=== PATIENT | female | born 1995 | race Caucasian/White ===

== ENCOUNTER 2016-05-21 01:19 | Emergency (ER) | payer BC ==
[2016-05-21 01:39] VITALS: O2SAT 98
--- NOTE | 2016-05-21 01:50 | ERPHSYRPT ---
- History of Present Illness Time Seen by Provider: 05/21/16 01:34 Source: patient Exam Limitations: no limitations Patient Subjective Stated Complaint: pt states she hadnt had a period for 6 months, states her period started on 05/14/16 and shes been passing clots and having pain and pressure in the pelvis. Triage Nursing Assessment: pt alert and oriented. answers questions approp. skin pale warm and dry. pt ambulatory with steady gait noted. respirations nonlabored with lungs cta. abd soft, bowel sounds present in all 4 quads. Physician History: PT STARTED WITH VAGINAL BLEEDING ON 05/14/16 WITH PELVIC PRESSURE/PAIN, LLQ ABDOMINAL PAIN AND HAS USED ABOUT 10 PADS EACH DAY SINCE. PT STATES PRIOR TO 05/14 SHE HAD NOT HAD A PERIOD FOR 6 MONTHS. PT DENIES FEVER, DIARRHEA, SHORTNESS OF AIR; ADMITS TO COUGH PRODUCTIVE OF CLEAR PHLEGM FOR THE PAST 3 DAYS, ANTERIOR CHEST PAIN ONLY WITH COUGH FOR THE PAST 2 DAYS AND VOMITING X2 YESTERDAY. PT STATES SHE HAS NEVER BEEN . PT ALSO C/O DYSURIA FOR THE PAST 11 DAYS. Allergies/Adverse Reactions: No Known Drug Allergies Allergy (Verified 05/03/15 17:32) Home Medications: Levothyroxine Sodium 100 Mcg [Synthroid 100 Mcg] 1 tab PO DAILY 04/18/15 [ History] Zolpidem Tartrate [Ambien] 10 mg PO HS PRN PRN 04/18/15 [History] Hx Tetanus, Diphtheria Vaccination/Date Given: Yes Hx Influenza Vaccination/Date Given: No Hx Pneumococcal Vaccination/Date Given: No - Review of Systems Constitutional: No Fever Respiratory: Cough, No Dyspnea Cardiac: Chest Pain Abdominal/Gastrointestinal: Abdominal Pain, Vomiting Genitourinary Symptoms: Dysuria, Vaginal Bleeding Musculoskeletal: No Back Pain Skin: No Rash Endocrine: No Excessive Sweating All Other Systems: Reviewed and Negative - Past Medical History Pertinent Past Medical History: Yes Neurological History: No Pertinent History ENT History: No Pertinent History Cardiac History: No Pertinent History Respiratory History: No Pertinent History Endocrine Medical History: Hypothyroidism Musculoskeletal History: No Pertinent History GI Medical History: No Pertinent History History: No Pertinent History Psycho-Social History: Other Other Medical History: sleep problems - Past Surgical History Past Surgical History: Yes Neuro Surgical History: No Pertinent History, Brain Shunt Cardiac: No Pertinent History Gastrointestinal: No Pertinent History Genitourinary: No Pertinent History Musculoskeletal: No Pertinent History Female Surgical History: No Pertinent History Other Surgical History: tonils - Social History Smoking Status: Current some day smoker How long have you smoked: 3 yrs Exposure to second hand smoke: Yes Drug Use: none Patient Lives Alone: No - Female History Hx Last Menstrual Period: current - Nursing Vital Signs Nursing Vital Signs: Initial Vital Signs Temperature 98.7 F Temperature Source Oral Pulse Rate 114 Respiratory Rate 18 Pain Intensity 8 - Physical Exam General Appearance: alert Eye Exam: PERRL/EOMI Ears, Nose, Throat Exam: TMs normal, pharynx normal, moist mucous membranes Neck Exam: normal inspection Respiratory Exam: lungs clear Cardiovascular Exam: normal heart sounds Gastrointestinal/Abdomen Exam: soft, normal bowel sounds, tenderness (MINIMAL LLQ ABDOMINAL TENDERNESS) Back Exam: normal range of motion Extremity Exam: normal inspection, No pedal edema Neurologic Exam: alert, cooperative Skin Exam: warm, dry SpO2 Interpretation: normal SpO2: 98 Oxygen Delivery: Room Air - Course Nursing assessment & vital signs reviewed: Yes Ordered Tests: Active Orders 24 hr Category Date Time Status AMYLASE Stat Lab 05/21/16 02:03 Completed CBC W DIFF Stat Lab 05/21/16 02:03 Completed CMP Stat Lab 05/21/16 02:03 Completed CULTURE,URINE Stat Lab 05/21/16 01:45 Received HCG QUALITATIVE,SERUM Stat Lab 05/21/16 02:03 Completed LIPASE Stat Lab 05/21/16 02:03 Completed UA W/ MICROSCOPIC Stat Lab 05/21/16 02:03 Completed Medication Summary Discontinued Medications Generic Name Dose Route Start Last Admin Trade Name Freq PRN Reason Stop Dose Admin Ceftriaxone Sodium 1,000 mg 05/21/16 02:23 05/21/16 02:29 Rocephin 1000 Mg Inj IM 05/21/16 02:24 1,000 mg STAT ONE Administration Ceftriaxone Sodium Confirm 05/21/16 02:26 Rocephin 1000 Mg Inj Administered 05/21/16 02:27 Dose 1,000 mg .ROUTE .STK-MED ONE Lidocaine HCl Confirm 05/21/16 02:26 Xylocaine 1% Hcl 20 Ml Mdv Administered 05/21/16 02:27 Dose 3 ml .ROUTE .STK-MED ONE Lab/Rad Data: Laboratory Result Diagrams 05/21/16 02:03 05/21/16 02:03 Laboratory Results 05/21/16 05/21/16 05/21/16 Range/Units 02:03 02:03 02:03 WBC 12.9 H (4.0-10.5) K/mm3 RBC 3.92 L (4.1-5.4) M/mm3 Hgb 10.6 L (12.0-16.0) gm/dl Hct 33.2 L (35-47) % MCV 84.7 (78-100) fl MCH 27.0 (26-32) pg MCHC 31.9 L (32-36) g/dl RDW 15.8 H (11.5-14.0) % Plt Count 407 (150-450) K/mm3 MPV 9.5 (6-9.5) fl Gran % 53.9 (36.0-66.0) % Lymphocytes % 36.9 (24.0-44.0) % Monocytes % 7.6 (0.0-12.0) % Eosinophils % 1.4 (0.00-5.0) % Basophils % 0.2 (0.0-0.4) % Basophils # 0.03 (0-0.4) Sodium 140 (136-145) mEq/L Potassium 3.6 (3.5-5.1) mEq/L Chloride 105 (98-107) mEq/L Carbon Dioxide 26.3 (21-32) mEq/L Anion Gap 12.3 (5-15) MEQ/L BUN 15 (9-20) mg/dL Creatinine 0.85 (0.55-1.30) mg/dl Estimated GFR > 60 ML/MIN Glucose 97 (70-110) MG/DL Calcium 8.7 (8.5-10.1) mg/dL Total Bilirubin 0.1 L (0.2-1.0) mg/dL AST 19 (15-37) U/L ALT 30 (12-78) U/L Alkaline Phosphatase 97 (46-116) U/L Serum Total Protein 7.3 (6.4-8.2) gm/dL Albumin 3.5 (3.4-5.0) g/dL Amylase 33 (25-115) U/L Lipase 136 (73-393) U/L Serum , Qual NEGATIVE (Negative) Ur Collection Type Urine Color (YELLOW) Urine Appearance (CLEAR) Urine pH (5-6) Ur Specific Larsen (1.005-1.025) Urine Protein (Negative) Urine Glucose (UA) (NEGATIVE) mg/dL Urine Ketones (NEGATIVE) Urine Nitrite (NEGATIVE) Urine Bilirubin (NEGATIVE) Urine Urobilinogen (0-1) mg/dL Urine WBC (Auto) (NEGATIVE) Urine RBC (Auto) (0-5) Phill/ul Urine Microscopic RBC (0-2) /HPF Urine Microscopic WBC (0-5) /HPF Ur Epithelial Cells (FEW) /HPF Urine Bacteria (NEGATIVE) /HPF Specimen Received 05/21/16 Range/Units 02:03 WBC (4.0-10.5) K/mm3 RBC (4.1-5.4) M/mm3 Hgb (12.0-16.0) gm/dl Hct (35-47) % MCV (78-100) fl MCH (26-32) pg MCHC (32-36) g/dl RDW (11.5-14.0) % Plt Count (150-450) K/mm3 MPV (6-9.5) fl Gran % (36.0-66.0) % Lymphocytes % (24.0-44.0) % Monocytes % (0.0-12.0) % Eosinophils % (0.00-5.0) % Basophils % (0.0-0.4) % Basophils # (0-0.4) Sodium (136-145) mEq/L Potassium (3.5-5.1) mEq/L Chloride (98-107) mEq/L Carbon Dioxide (21-32) mEq/L Anion Gap (5-15) MEQ/L BUN (9-20) mg/dL Creatinine (0.55-1.30) mg/dl Estimated GFR ML/MIN Glucose (70-110) MG/DL Calcium (8.5-10.1) mg/dL Total Bilirubin (0.2-1.0) mg/dL AST (15-37) U/L ALT (12-78) U/L Alkaline Phosphatase (46-116) U/L Serum Total Protein (6.4-8.2) gm/dL Albumin (3.4-5.0) g/dL Amylase (25-115) U/L Lipase (73-393) U/L Serum , Qual (Negative) Ur Collection Type CLEAN CATCH Urine Color RED (YELLOW) Urine Appearance CLOUDY (CLEAR) Urine pH 6.5 (5-6) Ur Specific Larsen 1.025 (1.005-1.025) Urine Protein 100 (Negative) Urine Glucose (UA) NEGATIVE (NEGATIVE) mg/dL Urine Ketones TRACE (NEGATIVE) Urine Nitrite NEGATIVE (NEGATIVE) Urine Bilirubin SMALL (NEGATIVE) Urine Urobilinogen 0.2 (0-1) mg/dL Urine WBC (Auto) NEGATIVE (NEGATIVE) Urine RBC (Auto) LARGE (0-5) Phill/ul Urine Microscopic RBC >100 (0-2) /HPF Urine Microscopic WBC 0-2 (0-5) /HPF Ur Epithelial Cells MODERATE (FEW) /HPF Urine Bacteria MODERATE (NEGATIVE) /HPF Specimen Received 05/21/16 0150 - Departure Time of Disposition: 02:52 Departure Disposition: Home Clinical Impression: UTI, MENOMETRORRHAGIA Condition: Fair Critical Care Time: No Instructions: Urinary Tract Infection (UTI), Dysmenorrhea Additional Instructions: FOLLOW UP WITH PRIVATE DOCTOR TOMORROW. Prescriptions: Smz/Tmp Ds Tablet [Bactrim Ds Tablet] 1 udtab PO BID #20 tablet
[2016-05-21 02:07] LABS: BASOPHIL % 0.2 % (0.0-0.4); Eosinophil % 1.4 % (0.00-5.0); Granulocytes % 53.9 % (36.0-66.0); Lymphocytes % 36.9 % (24.0-44.0); Mean Cell Volume 84.7 fl (78-100); Mean Platelet Volume 9.5 fl (6-9.5); Monocytes % 7.6 % (0.0-12.0); Platelet Count 407 K/mm3 (150-450); Red Blood Count 3.92 M/mm3 (4.1-5.4); Red Cell Distribution Width 15.8 % (11.5-14.0); White Blood Count 12.9 K/mm3 (4.0-10.5)
[2016-05-21 02:21] LABS: COMPLETE URINE MICROSCOPIC? YES; Collection Type CLEAN CATCH; Ph 6.5 (5-6)
[2016-05-21 02:22] LABS: Bacteria MODERATE /HPF (NEGATIVE); Epithelial Cells MODERATE /HPF (FEW); WBC 0-2 /HPF (0-5)
[2016-05-21] MEDS ORDERED: Rocephin 1000 MG INJ IM ONE (02:23)
[2016-05-21] MEDS ORDERED: Rocephin 1000 MG INJ ONE (02:26)
[2016-05-21] MEDS ORDERED: XYLOCAINE 1% HCL 20 ML MDV ONE (02:26)
[2016-05-21 02:30] LABS: ALBUMIN 3.5 g/dL (3.4-5.0); ALKALINE PHOSPHATASE 97 U/L (46-116); ANION GAP 12.3 MEQ/L (5-15); BILIRUBIN,TOTAL 0.1 mg/dL (0.2-1.0); BLOOD UREA NITROGEN 15 mg/dL (9-20); CHLORIDE 105 mEq/L (98-107); Carbon Dioxide 26.3 mEq/L (21-32); Glucose 97 MG/DL (70-110); LIPASE 136 U/L (73-393); Potassium 3.6 mEq/L (3.5-5.1); SGOT/AST 19 U/L (15-37); SGPT/ALT 30 U/L (12-78); SODIUM 140 mEq/L (136-145); Total Protein 7.3 gm/dL (6.4-8.2)
[2016-05-21] MEDS ORDERED: NORCO 5/325 MG PO ONE (02:53)
[2016-05-21] MEDS ORDERED: NORCO 5/325 MG ONE (03:09)
[2016-05-21 03:19] VITALS: BP 135/78; PULSE 108
== END 2016-05-21 03:20 | disposition home or self-care (01) ==
LOC: ED 01:19
DX: N39.0 Urinary tract infection, site not specified (principal); N92.1 Excessive and frequent menstruation with irregular cycle
CPT/HCPCS: 36415; 80053; 81000; 82150; 83690; 84703; 85025; 87086; 96372; 99283; 99284; J0696

== ENCOUNTER 2016-10-25 16:19 | Emergency (ER) | payer BC ==
[2016-10-25] MEDS ORDERED: TORAdol 30 mg Injection IV ONE (16:37)
[2016-10-25] MEDS ORDERED: Zofran 4 MG/2 ML VIAL IV ONE (16:37)
[2016-10-25 16:43] LABS: Collection Type VOID; Leukocyte Esterase 2+ (NEGATIVE)
[2016-10-25 16:44] LABS: ADD URINE CULTURE? YES (NO); Bilirubin NEGATIVE (NEGATIVE); Blood 250 Ery/ul (0-5); COMPLETE URINE MICROSCOPIC? YES; Glucose NEGATIVE (NEGATIVE)
[2016-10-25] MEDS ORDERED: Sodium Chloride 0.9% 1000 ML 1,000 ML IV SCH (16:45)
[2016-10-25] MEDS ORDERED: Zofran 4 MG/2 ML VIAL ONE (16:49)
[2016-10-25] MEDS ORDERED: Sodium Chloride 0.9% 1000 ML 1,000 ML ONE (16:49)
[2016-10-25] MEDS ORDERED: TORAdol 30 mg Injection ONE (16:49)
[2016-10-25 16:51] LABS: Bacteria MANY /HPF (NEGATIVE); Epithelial Cells MODERATE /HPF (FEW); WBC >100 /HPF (0-5)
[2016-10-25] MEDS ORDERED: ROCEPHIN 1 Gm-D5w 50 ml Bag** 1 G/50 ML IVPB IV ONE ×2 (16:55→17:00)
[2016-10-25 16:58] LABS: BASOPHIL % 0.2 % (0.0-0.4); Eosinophil % 1.8 % (0.00-5.0); Granulocytes % 65.4 % (36.0-66.0); Lymphocytes % 26.7 % (24.0-44.0); Mean Cell Volume 75.8 fl (78-100); Mean Platelet Volume 9.8 fl (6-9.5); Monocytes % 5.9 % (0.0-12.0); Platelet Count 404 K/mm3 (150-450); Red Blood Count 4.67 M/mm3 (4.1-5.4); Red Cell Distribution Width 19.4 % (11.5-14.0); White Blood Count 12.6 K/mm3 (4.0-10.5)
[2016-10-25 17:00] LABS: Mean Corpuscular Hemoglobin 23.7 pg (26-32)
--- NOTE | 2016-10-25 17:01 | ERPHSYRPT ---
- History of Present Illness Time Seen by Provider: 10/25/16 16:21 Historian: patient, family Exam Limitations: no limitations Patient Subjective Stated Complaint: pt states on 10/22/16 she began having dysuria. Pt now is c/o pain in her back and dysuria. Triage Nursing Assessment: pt pink, warm, dry. abdomen obese. denies any injury. bowel sounds present in all 4 quads. Physician History: patient with symptoms starting a few days ago and progressing in severity; some N without emesis; BMs ok; hx of recent frequent UTI; last one 6 weeks ago; denises - neg at docs a week ago; no fever; no travel; no exposures Timing/Duration: today (worse), yesterday (getting worse), day(s) (3 onset), gradual onset, worse Activities at Onset: none Quality: burning, cramping Abdominal Pain Onset Location: suprapubic (greatest), generalized abdomen Pain Radiation: no radiation Severity of Pain-Max: moderate Severity of Pain-Current: moderate Modifying Factors: Improves With: palpation, urinating Associated Symptoms: back, loss of appetite, nausea Previous symptoms: same symptoms as today (just not as bad) Allergies/Adverse Reactions: No Known Drug Allergies Allergy (Verified 10/25/16 16:32) Home Medications: Levothyroxine Sodium 100 Mcg [Synthroid 100 Mcg] 1 tab PO DAILY 04/18/15 [ History] Phentermine HCl [Adipex-P] 37.5 mg PO DAILY 10/25/16 [History] Hx Tetanus, Diphtheria Vaccination/Date Given: Yes (up to date) Hx Influenza Vaccination/Date Given: Yes Hx Pneumococcal Vaccination/Date Given: No Immunizations Up to Date: Yes - Review of Systems Constitutional: No Symptoms Eyes: No Symptoms Ears, Nose, & Throat: No Symptoms Respiratory: No Cough, No Dyspnea, No Wheezing Cardiac: No Chest Pain, No Palpitations, No Syncope Abdominal/Gastrointestinal: Abdominal Pain, Nausea, No Vomiting, No Diarrhea, No Constipation Genitourinary Symptoms: Dysuria, Frequency, Urgency, Flank Pain, No Hematuria, No Hesitancy, No Incontinence Musculoskeletal: No Symptoms Skin: No Symptoms Neurological: No Symptoms Psychological: No Symptoms Endocrine: No Symptoms Hematologic/Lymphatic: No Symptoms Immunological/Allergic: No Symptoms - Past Medical History Pertinent Past Medical History: Yes Neurological History: No Pertinent History ENT History: No Pertinent History Cardiac History: No Pertinent History Respiratory History: No Pertinent History Endocrine Medical History: Hypothyroidism Musculoskeletal History: No Pertinent History GI Medical History: No Pertinent History History: No Pertinent History Psycho-Social History: Other Other Medical History: sleep problems - Past Surgical History Past Surgical History: Yes Neuro Surgical History: No Pertinent History, Brain Shunt Cardiac: No Pertinent History Gastrointestinal: No Pertinent History Genitourinary: No Pertinent History Musculoskeletal: No Pertinent History Female Surgical History: No Pertinent History Other Surgical History: tonils - Social History Smoking Status: Current every day smoker How long have you smoked: 4 Exposure to second hand smoke: Yes Alcohol Use: Socially Drug Use: none Patient Lives Alone: No Significant Family History: no pertinent family hx - Female History Hx Last Menstrual Period: irregular 10/08-12/24 preg test neg a week ago Hx Now: No - Nursing Vital Signs Nursing Vital Signs: Initial Vital Signs Temperature 99.8 F 10/25/16 16:26 Pulse Rate 112 H 10/25/16 16:26 Respiratory Rate 18 10/25/16 16:26 Blood Pressure 141/65 10/25/16 16:26 O2 Sat by Pulse Oximetry 95 10/25/16 16:26 Pain Scale Pain Intensity 9 - Physical Exam General Appearance: moderate distress, alert, obese Eye Exam: PERRL/EOMI, eyes nml inspection, No photophobia Ears, Nose, Throat Exam: normal ENT inspection, TMs normal, pharynx normal, moist mucous membranes Neck Exam: normal inspection, non-tender, supple, full range of motion, No meningismus, No JVD Respiratory Exam: normal breath sounds, lungs clear, airway intact, No chest tenderness, No respiratory distress Cardiovascular Exam: regular rate/rhythm, normal heart sounds, normal peripheral pulses, tachycardia, capillary refill <2 sec, No murmur Gastrointestinal/Abdomen Exam: soft, normal bowel sounds, tenderness (Suprapubic > epig), No distention, No mass, No guarding, No pulsatile mass, No rebound, No organomegaly Pelvic Exam: deferred Rectal Exam: deferred Back Exam: normal inspection, normal range of motion, CVA tenderness (right only ), No vertebral tenderness, No rash Extremity Exam: normal inspection, normal range of motion, pedal edema (trace), No jaja's sign Neurologic Exam: alert, oriented x 3, cooperative, software support analyst II-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 nml as tested, normal mood/affect, nml cerebellar function, nml station & gait Skin Exam: normal color, warm, other (hairless), No rash Lymphatic Exam: No adenopathy SpO2 Interpretation: normal SpO2: 95 Oxygen Delivery: Room Air - Course Nursing assessment & vital signs reviewed: Yes Ordered Tests: Active Orders 24 hr Category Date Time Status IV Insertion STAT Care 10/25/16 16:37 Active Re-Check Vital Signs STAT Care 10/25/16 16:37 Active AMYLASE Stat Lab 10/25/16 16:55 Completed CBC W DIFF Stat Lab 10/25/16 16:55 Completed CMP Stat Lab 10/25/16 16:55 Completed CULTURE,URINE Stat Lab 10/25/16 16:30 Received HCG QUALITATIVE,SERUM Stat Lab 10/25/16 16:55 Completed LIPASE Stat Lab 10/25/16 16:55 Completed UA W/ MICROSCOPIC Stat Lab 10/25/16 16:30 Completed Medication Summary Generic Name Dose Route Start Last Admin Trade Name Freq PRN Reason Stop Dose Admin Sodium Chloride 1,000 mls @ 100 mls/hr 10/25/16 16:45 10/25/16 16:51 Sodium Chloride 0.9% 1000 Ml IV 11/24/16 16:44 100 mls/hr .Q10H PEPE Administration Discontinued Medications Generic Name Dose Route Start Last Admin Trade Name Freq PRN Reason Stop Dose Admin Ceftriaxone Sodium/Dextrose 1 g in 50 mls @ 100 mls/hr 10/25/16 16:55 17:01 Rocephin 1 Gm-D5w 50 Ml Bag IV 10/25/16 17:24 100 mls/hr STAT ONE Administration Ceftriaxone Sodium/Dextrose Confirm 10/25/16 17:00 Rocephin 1 Gm-D5w 50 Ml Bag Administered 10/25/16 17:01 Dose 1 g in 50 mls @ ud IV .STK-MED ONE Ketorolac Tromethamine 30 mg 10/25/16 16:37 10/25/16 16:51 Toradol 30 Mg Injection IV 10/25/16 16:38 30 mg STAT ONE Administration Ketorolac Tromethamine Confirm 10/25/16 16:49 Toradol 30 Mg Injection Administered 10/25/16 16:50 Dose 30 mg .ROUTE .STK-MED ONE Ondansetron HCl 4 mg 10/25/16 16:37 10/25/16 16:51 Zofran 4 Mg/2 Ml Vial IV 10/25/16 16:38 4 mg STAT ONE Administration Ondansetron HCl Confirm 10/25/16 16:49 Zofran 4 Mg/2 Ml Vial Administered 10/25/16 16:50 Dose 4 mg .ROUTE .STK-MED ONE Lab/Rad Data: Laboratory Result Diagrams 10/25/16 16:55 10/25/16 16:55 Laboratory Results 10/25/16 10/25/16 10/25/16 Range/Units 16:55 16:55 16:55 WBC 12.6 H (4.0-10.5) K/mm3 RBC 4.67 (4.1-5.4) M/mm3 Hgb 11.1 L (12.0-16.0) gm/dl Hct 35.4 (35-47) % MCV 75.8 L (78-100) fl MCH 23.7 L (26-32) pg MCHC 31.4 L (32-36) g/dl RDW 19.4 H (11.5-14.0) % Plt Count 404 (150-450) K/mm3 MPV 9.8 H (6-9.5) fl Gran % 65.4 (36.0-66.0) % Lymphocytes % 26.7 (24.0-44.0) % Monocytes % 5.9 (0.0-12.0) % Eosinophils % 1.8 (0.00-5.0) % Basophils % 0.2 (0.0-0.4) % Basophils # 0.02 (0-0.4) Sodium 141 (136-145) mEq/L Potassium 3.3 L (3.5-5.1) mEq/L Chloride 105 (98-107) mEq/L Carbon Dioxide 23.3 (21-32) mEq/L Anion Gap 15.5 H (5-15) MEQ/L BUN 11 (9-20) mg/dL Creatinine 1.02 (0.55-1.30) mg/dl Estimated GFR > 60 ML/MIN Glucose 139 H (70-110) MG/DL Calcium 9.0 (8.5-10.1) mg/dL Total Bilirubin 0.20 (0.2-1.0) mg/dL AST 22 (15-37) U/L ALT 38 (12-78) U/L Alkaline Phosphatase 108 (46-116) U/L Serum Total Protein 7.3 (6.4-8.2) gm/dL Albumin 3.5 (3.4-5.0) g/dL Amylase 24 L (25-115) U/L Lipase 90 (73-393) U/L Serum , Qual NEGATIVE (Negative) Ur Collection Type Urine Color (YELLOW) Urine Appearance (CLEAR) Urine pH (5-6) Ur Specific Browns (1.005-1.025) Urine Protein (Negative) Urine Ketones (NEGATIVE) Urine Blood (0-5) Phill/ul Urine Nitrite (NEGATIVE) Urine Bilirubin (NEGATIVE) Urine Urobilinogen (0-1) mg/dL Ur Leukocyte Esterase (NEGATIVE) Urine Microscopic RBC (0-2) /HPF Urine Microscopic WBC (0-5) /HPF Ur Epithelial Cells (FEW) /HPF Urine Bacteria (NEGATIVE) /HPF Urine Glucose (NEGATIVE) mg/dL Specimen Received 10/25/16 Range/Units 16:30 WBC (4.0-10.5) K/mm3 RBC (4.1-5.4) M/mm3 Hgb (12.0-16.0) gm/dl Hct (35-47) % MCV (78-100) fl MCH (26-32) pg MCHC (32-36) g/dl RDW (11.5-14.0) % Plt Count (150-450) K/mm3 MPV (6-9.5) fl Gran % (36.0-66.0) % Lymphocytes % (24.0-44.0) % Monocytes % (0.0-12.0) % Eosinophils % (0.00-5.0) % Basophils % (0.0-0.4) % Basophils # (0-0.4) Sodium (136-145) mEq/L Potassium (3.5-5.1) mEq/L Chloride (98-107) mEq/L Carbon Dioxide (21-32) mEq/L Anion Gap (5-15) MEQ/L BUN (9-20) mg/dL Creatinine (0.55-1.30) mg/dl Estimated GFR ML/MIN Glucose (70-110) MG/DL Calcium (8.5-10.1) mg/dL Total Bilirubin (0.2-1.0) mg/dL AST (15-37) U/L ALT (12-78) U/L Alkaline Phosphatase (46-116) U/L Serum Total Protein (6.4-8.2) gm/dL Albumin (3.4-5.0) g/dL Amylase (25-115) U/L Lipase (73-393) U/L Serum , Qual (Negative) Ur Collection Type VOID Urine Color YELLOW (YELLOW) Urine Appearance CLOUDY (CLEAR) Urine pH 5.0 (5-6) Ur Specific Browns 1.015 (1.005-1.025) Urine Protein 3+ (Negative) Urine Ketones NEGATIVE (NEGATIVE) Urine Blood 250 (0-5) Phill/ul Urine Nitrite NEGATIVE (NEGATIVE) Urine Bilirubin NEGATIVE (NEGATIVE) Urine Urobilinogen NORMAL (0-1) mg/dL Ur Leukocyte Esterase 2+ (NEGATIVE) Urine Microscopic RBC 0-2 (0-2) /HPF Urine Microscopic WBC >100 (0-5) /HPF Ur Epithelial Cells MODERATE (FEW) /HPF Urine Bacteria MANY (NEGATIVE) /HPF Urine Glucose NEGATIVE (NEGATIVE) mg/dL Specimen Received 10/25/16 1630 reviewed - Progress Progress: improved (after meds), re-examined (after meds and labs) Progress Note: 10/25/16 17:01 IV started; UA and lab collected; meds given; famil at bedside; UA shows infection; will start ATBs and recheck 10/25/16 17:31 reviewed findings and tests with patient and family; treatment plan and instructions given Counseled pt/family regarding: lab results, diagnosis, need for follow-up - Departure Time of Disposition: 17:32 Departure Disposition: Home Clinical Impression: UTI (urinary tract infection) Condition: Stable Critical Care Time: No Referrals: KYLIE VINSON [Primary Care Provider] - Instructions: Urinary Tract Infection (UTI) Additional Instructions: clear fluids; Follow-up with family doctor as directed. Call for appointment. Return if any problems. If you smoke please stop. Call or follow up with your family doctor for assistance if you need it to stop. Please wear your seatbelt when driving. Have a nice day. Thank you for allowing us to participate in your care today. :o) Dr William Sutherland Prescriptions: Phenazopyridine HCl 200 mg [Pyridium 200 mg] 200 mg PO Q12H PRN PRN #7 tablet PRN Reason: Pain Cephalexin Mh 500 mg [Keflex 500 mg] 500 mg PO QID #40 capsule
[2016-10-25 17:15] VITALS: BP 120/63; PULSE 90
[2016-10-25 17:27] LABS: ALBUMIN 3.5 g/dL (3.4-5.0); ALKALINE PHOSPHATASE 108 U/L (46-116); ANION GAP 15.5 MEQ/L (5-15); BLOOD UREA NITROGEN 11 mg/dL (9-20); CHLORIDE 105 mEq/L (98-107); Carbon Dioxide 23.3 mEq/L (21-32); Glucose 139 MG/DL (70-110); LIPASE 90 U/L (73-393); Potassium 3.3 mEq/L (3.5-5.1); SGOT/AST 22 U/L (15-37); SGPT/ALT 38 U/L (12-78); SODIUM 141 mEq/L (136-145); Total Protein 7.3 gm/dL (6.4-8.2)
[2016-10-25 17:35] VITALS: O2SAT 95
== END 2016-10-25 17:47 | disposition home or self-care (01) ==
LOC: ED 16:19
DX: N39.0 Urinary tract infection, site not specified (principal); R10.9 Unspecified abdominal pain; R11.0 Nausea; R30.0 Dysuria; R35.0 Frequency of micturition; R39.15 Urgency of urination
CPT/HCPCS: 36000; 36415; 80053; 81000; 82150; 83690; 84703; 85025; 87077; 87086; 87186; 96360; 96365; 96374; 96375; 99284; J0696; J1885; J2405

== ENCOUNTER 2016-10-28 22:40 | Emergency (ER) | payer BC ==
[2016-10-28] MEDS ORDERED: Phenergan 25 MG INJ IV ONE (22:59)
[2016-10-28] MEDS ORDERED: Sodium Chloride 0.9% 1000 ML 1,000 ML IV STA (22:59)
[2016-10-28] MEDS ORDERED: Hydromorphone 1 mg/ml Ampule IV ONE (22:59)
--- NOTE | 2016-10-28 23:06 | ERPHSYRPT ---
- History of Present Illness Time Seen by Provider: 10/28/16 22:50 Historian: patient Exam Limitations: no limitations Physician History: FOR THE PAST 7 DAYS PT HAS HAD LOW BACK PAIN; FOR THE PAST 2 DAYS INCREASED URINARY FREQUENCY, FEVER UP TO 100.1 DEGREES AND INTERMITTENT LOWER MID DULL ABDOMINAL PAIN LASTING UP TO 2 HOURS PER EPISODE; TODAY A FRONTAL HEADACHE, DIARRHEA X7 WITHOUT BLOOD AND A SUBJECTIVE FEELING OF SHAKINESS. PT HAS BEEN TAKING KEFLEX FOR THE PAST 3 DAYS FOR A UTI. Allergies/Adverse Reactions: No Known Drug Allergies Allergy (Verified 10/25/16 16:32) Home Medications: Levothyroxine Sodium 100 Mcg [Synthroid 100 Mcg] 1 tab PO DAILY 04/18/15 [ History] Phentermine HCl [Adipex-P] 37.5 mg PO DAILY 10/25/16 [History] Metformin HCl 500 mg [Glucophage 500 MG] 1 tab DAILY 10/28/16 [History] Phenazopyridine HCl [Azo Standard] 1 tab 10/28/16 [History] Hx Tetanus, Diphtheria Vaccination/Date Given: Yes (up to date) Hx Influenza Vaccination/Date Given: Yes Hx Pneumococcal Vaccination/Date Given: No - Review of Systems Constitutional: Fever Respiratory: No Dyspnea Cardiac: No Chest Pain Abdominal/Gastrointestinal: Abdominal Pain, Diarrhea Genitourinary Symptoms: Frequency Musculoskeletal: Back Pain (LOWER) Neurological: Headache, Other (SUBJECTIVE FEELING OF SHAKINESS) All Other Systems: Reviewed and Negative - Past Medical History Pertinent Past Medical History: Yes Neurological History: No Pertinent History ENT History: No Pertinent History Cardiac History: No Pertinent History Respiratory History: No Pertinent History Endocrine Medical History: Hypothyroidism Musculoskeletal History: No Pertinent History GI Medical History: No Pertinent History History: No Pertinent History Psycho-Social History: Other Other Medical History: sleep problems - Past Surgical History Past Surgical History: Yes Neuro Surgical History: No Pertinent History, Brain Shunt Cardiac: No Pertinent History Gastrointestinal: No Pertinent History Genitourinary: No Pertinent History Musculoskeletal: No Pertinent History Female Surgical History: No Pertinent History Other Surgical History: tonils - Social History Smoking Status: Current every day smoker How long have you smoked: 4 Exposure to second hand smoke: Yes Alcohol Use: Socially Drug Use: none Patient Lives Alone: No Significant Family History: no pertinent family hx - Female History Hx Now: No - Nursing Vital Signs Nursing Vital Signs: Initial Vital Signs Temperature 98.5 F 10/28/16 23:14 Pulse Rate 112 H 10/28/16 23:14 Respiratory Rate 16 10/28/16 23:14 Blood Pressure 148/84 10/28/16 23:14 O2 Sat by Pulse Oximetry 96 10/28/16 23:14 Pain Scale Pain Intensity 5 - Physical Exam General Appearance: alert Eye Exam: PERRL/EOMI Ears, Nose, Throat Exam: pharynx normal, moist mucous membranes Neck Exam: normal inspection Respiratory Exam: lungs clear Cardiovascular Exam: normal heart sounds Gastrointestinal/Abdomen Exam: soft, normal bowel sounds, tenderness (MILD DIFFUSE TENDERNESS WORSE OVER SUPRAPUBIC AREA.), No guarding Back Exam: normal range of motion Extremity Exam: normal inspection, No pedal edema Neurologic Exam: alert, cooperative Skin Exam: warm, dry - Course Nursing assessment & vital signs reviewed: Yes - CT Exams Abdomen/Pelvis CT Interpretation: Tele-radiologist Report (NO ACUTE INTRA-ABDOMINAL/ INTRAPELVIC PROCESS IDENTIFIED.) Ordered Tests: Active Orders 24 hr Category Date Time Status IV Insertion STAT Care 10/28/16 22:59 Active ABDOMEN AND PELVIS W/0 CONTRAS [CT] Stat Exams 10/28/16 23:59 Taken AMYLASE Stat Lab 10/28/16 23:15 Completed CBC W DIFF Stat Lab 10/28/16 23:15 Completed CMP Stat Lab 10/28/16 23:15 Completed CULTURE,URINE Stat Lab 10/28/16 23:00 Received HCG,QUALITATIVE URINE Stat Lab 10/28/16 23:00 Completed LIPASE Stat Lab 10/28/16 23:15 Completed UA W/ MICROSCOPIC Stat Lab 10/28/16 23:00 Completed Medication Summary Discontinued Medications Generic Name Dose Route Start Last Admin Trade Name Freq PRN Reason Stop Dose Admin Hydromorphone HCl 1 mg 10/28/16 22:59 10/28/16 23:19 Hydromorphone 1 Mg/Ml Ampule IV 10/28/16 23:00 1 mg STAT ONE Administration Hydromorphone HCl Confirm 10/28/16 23:18 Hydromorphone 1 Mg/Ml Ampule Administered 10/28/16 23:19 Dose 1 mg .ROUTE .STK-MED ONE Sodium Chloride 1,000 mls @ 999 mls/hr 10/28/16 22:59 10/28/16 23:19 Sodium Chloride 0.9% 1000 Ml IV 10/28/16 23:59 999 mls/hr .Q1H1M STA Administration Sodium Chloride Confirm 10/28/16 23:18 Sodium Chloride 0.9% 1000 Ml Administered 10/28/16 23:19 Dose 1,000 mls @ ud .ROUTE .STK-MED ONE Promethazine HCl 12.5 mg 10/28/16 22:59 10/28/16 23:19 Phenergan 25 Mg Inj IV 10/28/16 23:00 12.5 mg STAT ONE Administration Promethazine HCl Confirm 10/28/16 23:17 Phenergan 25 Mg Inj Administered 10/28/16 23:18 Dose 25 mg .ROUTE .STK-MED ONE Lab/Rad Data: Laboratory Result Diagrams 10/28/16 23:15 10/28/16 23:15 Laboratory Results 10/28/16 10/28/16 10/28/16 Range/Units 23:15 23:15 23:00 WBC 15.6 H (4.0-10.5) K/mm3 RBC 4.69 (4.1-5.4) M/mm3 Hgb 11.0 L (12.0-16.0) gm/dl Hct 35.5 (35-47) % MCV 75.7 L (78-100) fl MCH 23.4 L (26-32) pg MCHC 31.0 L (32-36) g/dl RDW 19.6 H (11.5-14.0) % Plt Count 411 (150-450) K/mm3 MPV 9.8 H (6-9.5) fl Gran % 66.5 H (36.0-66.0) % Lymphocytes % 26.6 (24.0-44.0) % Monocytes % 5.2 (0.0-12.0) % Eosinophils % 1.5 (0.00-5.0) % Basophils % 0.2 (0.0-0.4) % Basophils # 0.03 (0-0.4) Sodium 140 (136-145) mEq/L Potassium 3.4 L (3.5-5.1) mEq/L Chloride 104 (98-107) mEq/L Carbon Dioxide 23.9 (21-32) mEq/L Anion Gap 15.3 H (5-15) MEQ/L BUN 9 (9-20) mg/dL Creatinine 0.95 (0.55-1.30) mg/dl Estimated GFR > 60 ML/MIN Glucose 101 (70-110) MG/DL Calcium 9.2 (8.5-10.1) mg/dL Total Bilirubin 0.20 (0.2-1.0) mg/dL AST 23 (15-37) U/L ALT 36 (12-78) U/L Alkaline Phosphatase 106 (46-116) U/L Serum Total Protein 7.6 (6.4-8.2) gm/dL Albumin 3.8 (3.4-5.0) g/dL Amylase 24 L (25-115) U/L Lipase 77 (73-393) U/L Ur Collection Type Urine Color (YELLOW) Urine Appearance (CLEAR) Urine pH (5-6) Ur Specific [place] (1.005-1.025) Urine Protein (Negative) Urine Ketones (NEGATIVE) Urine Blood (0-5) Phill/ul Urine Nitrite (NEGATIVE) Urine Bilirubin (NEGATIVE) Urine Urobilinogen (0-1) mg/dL Ur Leukocyte Esterase (NEGATIVE) Urine Microscopic RBC (0-2) /HPF Urine Microscopic WBC (0-5) /HPF Ur Epithelial Cells (FEW) /HPF Urine Bacteria (NEGATIVE) /HPF Urine Mucus (NEGATIVE) /HPF Urine Glucose (NEGATIVE) mg/dL Urine HCG, Qual NEGATIVE (Negative) Specimen Received 10/28/16 Range/Units 23:00 WBC (4.0-10.5) K/mm3 RBC (4.1-5.4) M/mm3 Hgb (12.0-16.0) gm/dl Hct (35-47) % MCV (78-100) fl MCH (26-32) pg MCHC (32-36) g/dl RDW (11.5-14.0) % Plt Count (150-450) K/mm3 MPV (6-9.5) fl Gran % (36.0-66.0) % Lymphocytes % (24.0-44.0) % Monocytes % (0.0-12.0) % Eosinophils % (0.00-5.0) % Basophils % (0.0-0.4) % Basophils # (0-0.4) Sodium (136-145) mEq/L Potassium (3.5-5.1) mEq/L Chloride (98-107) mEq/L Carbon Dioxide (21-32) mEq/L Anion Gap (5-15) MEQ/L BUN (9-20) mg/dL Creatinine (0.55-1.30) mg/dl Estimated GFR ML/MIN Glucose (70-110) MG/DL Calcium (8.5-10.1) mg/dL Total Bilirubin (0.2-1.0) mg/dL AST (15-37) U/L ALT (12-78) U/L Alkaline Phosphatase (46-116) U/L Serum Total Protein (6.4-8.2) gm/dL Albumin (3.4-5.0) g/dL Amylase (25-115) U/L Lipase (73-393) U/L Ur Collection Type VOID Urine Color ORANGE (YELLOW) Urine Appearance SLIGHTLY CLOUDY (CLEAR) Urine pH 6.0 (5-6) Ur Specific [place] 1.020 (1.005-1.025) Urine Protein NEGATIVE (Negative) Urine Ketones NEGATIVE (NEGATIVE) Urine Blood TRACE NON-HEM (0-5) Phill/ul Urine Nitrite NEGATIVE (NEGATIVE) Urine Bilirubin NEGATIVE (NEGATIVE) Urine Urobilinogen NORMAL (0-1) mg/dL Ur Leukocyte Esterase TRACE (NEGATIVE) Urine Microscopic RBC 2-5 (0-2) /HPF Urine Microscopic WBC 2-5 (0-5) /HPF Ur Epithelial Cells MODERATE (FEW) /HPF Urine Bacteria RARE (NEGATIVE) /HPF Urine Mucus MODERATE (NEGATIVE) /HPF Urine Glucose NEGATIVE (NEGATIVE) mg/dL Urine HCG, Qual (Negative) Specimen Received 10/28/162319 - Departure Time of Disposition: 00:50 Departure Disposition: Home Clinical Impression: UTI, ABDOMINAL PAIN Condition: Stable Critical Care Time: No Instructions: Urinary Tract Infection (UTI), Abdominal Pain-Adult Additional Instructions: FOLLOW UP WITH PRIVATE DOCTOR TOMORROW. STOP KEFLEX. Prescriptions: Smz/Tmp Ds Tablet [Bactrim Ds Tablet] 1 udtab PO BID #20 tablet
[2016-10-28] MEDS ORDERED: Phenergan 25 MG INJ ONE (23:17)
[2016-10-28] MEDS ORDERED: Sodium Chloride 0.9% 1000 ML 1,000 ML ONE (23:18)
[2016-10-28] MEDS ORDERED: Hydromorphone 1 mg/ml Ampule ONE (23:18)
[2016-10-28 23:19] LABS: BASOPHIL % 0.2 % (0.0-0.4); Eosinophil % 1.5 % (0.00-5.0); Granulocytes % 66.5 % (36.0-66.0); Lymphocytes % 26.6 % (24.0-44.0); Mean Cell Volume 75.7 fl (78-100); Mean Platelet Volume 9.8 fl (6-9.5); Monocytes % 5.2 % (0.0-12.0); Platelet Count 411 K/mm3 (150-450); Red Blood Count 4.69 M/mm3 (4.1-5.4); Red Cell Distribution Width 19.6 % (11.5-14.0); White Blood Count 15.6 K/mm3 (4.0-10.5)
[2016-10-28 23:48] LABS: ALBUMIN 3.8 g/dL (3.4-5.0); ALKALINE PHOSPHATASE 106 U/L (46-116); ANION GAP 15.3 MEQ/L (5-15); BLOOD UREA NITROGEN 9 mg/dL (9-20); CHLORIDE 104 mEq/L (98-107); Carbon Dioxide 23.9 mEq/L (21-32); Glucose 101 MG/DL (70-110); LIPASE 77 U/L (73-393); Potassium 3.4 mEq/L (3.5-5.1); SGOT/AST 23 U/L (15-37); SGPT/ALT 36 U/L (12-78); SODIUM 140 mEq/L (136-145); Total Protein 7.6 gm/dL (6.4-8.2)
[2016-10-28 23:49] LABS: Mean Corpuscular Hemoglobin 23.4 pg (26-32)
[2016-10-28 23:54] LABS: Collection Type VOID
[2016-10-28 23:55] LABS: Bacteria RARE /HPF (NEGATIVE); Bilirubin NEGATIVE (NEGATIVE); Blood TRACE NON-HEM Ery/ul (0-5); COMPLETE URINE MICROSCOPIC? YES; Epithelial Cells MODERATE /HPF (FEW); Glucose NEGATIVE (NEGATIVE); Leukocyte Esterase TRACE (NEGATIVE); Mucus MODERATE /HPF (NEGATIVE)
[2016-10-28 23:56] LABS: ADD URINE CULTURE? YES (NO)
[2016-10-29] MEDS ORDERED: ROCEPHIN 1 Gm-D5w 50 ml Bag** 1 G/50 ML IVPB IV STA (00:46)
[2016-10-29] MEDS ORDERED: Klor Con 10 MEQ PO ONE ×2 (00:46→00:50)
[2016-10-29] MEDS ORDERED: ROCEPHIN 1 Gm-D5w 50 ml Bag** 1 G/50 ML IVPB IV ONE (00:50)
[2016-10-29] MEDS ORDERED: Hydromorphone 1 mg/ml Ampule IV ONE (00:53)
[2016-10-29] MEDS ORDERED: Zofran 4 MG/2 ML VIAL IV ONE (00:53)
[2016-10-29] MEDS ORDERED: Zofran 4 MG/2 ML VIAL ONE (00:56)
[2016-10-29] MEDS ORDERED: Hydromorphone 1 mg/ml Ampule ONE (00:56)
[2016-10-29] MEDS ORDERED: NORCO 5/325 MG PO ONE (00:58)
[2016-10-29] MEDS ORDERED: NORCO 5/325 MG ONE (01:04)
[2016-10-29 01:55] VITALS: BP 126/78; PULSE 88; O2SAT 99
--- NOTE | 2016-10-29 07:48 | XRAY ---
Indication: Bilateral flank pain, low back pain, diarrhea, fever, and urinary frequency. Multiple contiguous axial images obtained through the abdomen and pelvis without contrast as ordered. Comparison: None Lung bases are clear. Heart is not enlarged. Stomach is distended with food. Noncontrasted stomach and bowel loops appear nonobstructed. Normal appendix. No free fluid/air. Remaining liver, gallbladder, pancreas, spleen, adrenal glands, kidneys, ureters, bladder, uterus, and aorta appear unremarkable for noncontrast exam. Osseous structures intact. Impression: No acute intra-abdominal/pelvic abnormalities on this noncontrast exam. Comment: Preliminary interpretation was made by [facility]. No discrepancy. CTDI 23.68
== END 2016-10-29 01:30 | disposition home or self-care (01) ==
LOC: ED 22:40
DX: N39.0 Urinary tract infection, site not specified (principal); R10.9 Unspecified abdominal pain; R35.0 Frequency of micturition; R51 Headache; R19.7 Diarrhea, unspecified; Z79.899 Other long term (current) drug therapy; Z79.84 Long term (current) use of oral hypoglycemic drugs
CPT/HCPCS: 36000; 36415; 74176; 80053; 81000; 82150; 83690; 84703; 85025; 87077; 87086; 87186; 96360; 96365; 96367; 96374; 96375; 99285; J0696; J1170; J2405; J2550; A9270-GY

== ENCOUNTER 2016-11-27 14:12 | Emergency (ER) | payer BC ==
[2016-11-27 14:22] VITALS: O2SAT 98
[2016-11-27] MEDS ORDERED: PROVENTIL 2.5 MG/3 ML NEB IH ONE ×2 (14:27→14:55)
--- NOTE | 2016-11-27 14:36 | ERPHSYRPT ---
- History of Present Illness Time Seen by Provider: 11/27/16 14:20 Source: patient Patient Subjective Stated Complaint: "I thought I had a cold, I have been having chest pain and a cough since sunday and now my chest really hurts when I cough and breath". Dr. Corea Triage Nursing Assessment: Pt alert and oriented X 3, skin pwd pt ambulates without difficulty, able to speak in full sentences. coughing. Physician History: CC: chest cold Hx: 21 y/o patient of Dr Spring with cough, congestion, aching since Sunday (3 days). No fever. Remote hx of asthma. No V/D. Not particularly short of breath. She is a smoker. On provera in attempt to get . Allergies/Adverse Reactions: No Known Drug Allergies Allergy (Verified 11/27/16 14:21) Home Medications: Levothyroxine Sodium 100 Mcg [Synthroid 100 Mcg] 1 tab PO DAILY 04/18/15 [ History] Phentermine HCl [Adipex-P] 37.5 mg PO DAILY 10/25/16 [History] Metformin HCl 500 mg [Glucophage 500 MG] 1 tab DAILY 10/28/16 [History] Hx Tetanus, Diphtheria Vaccination/Date Given: No Hx Influenza Vaccination/Date Given: Yes Hx Pneumococcal Vaccination/Date Given: No Immunizations Up to Date: Yes - Review of Systems Constitutional: Fatigue, Malaise, Weakness, No Fever, No Chills Ears, Nose, & Throat: Nose Congestion Respiratory: Cough Cardiac: Chest Pain (aching with coughing) Abdominal/Gastrointestinal: No Nausea, No Vomiting, No Diarrhea Skin: No Rash Neurological: No Headache All Other Systems: Reviewed and Negative - Past Medical History Pertinent Past Medical History: Yes Neurological History: No Pertinent History ENT History: No Pertinent History Cardiac History: No Pertinent History Respiratory History: No Pertinent History Endocrine Medical History: Hypothyroidism Musculoskeletal History: No Pertinent History GI Medical History: No Pertinent History History: No Pertinent History Psycho-Social History: Other Female Reproductive Disorders: Menstrual Problems, Other Other Medical History: sleep problems - Past Surgical History Past Surgical History: Yes Neuro Surgical History: No Pertinent History, Brain Shunt Cardiac: No Pertinent History Gastrointestinal: No Pertinent History Genitourinary: No Pertinent History Musculoskeletal: No Pertinent History Female Surgical History: No Pertinent History Other Surgical History: tonils - Social History Smoking Status: Current every day smoker How long have you smoked: 4 year Exposure to second hand smoke: Yes Alcohol Use: Socially Drug Use: none Patient Lives Alone: No Significant Family History: no pertinent family hx - Female History Hx Last Menstrual Period: 11/16/2016 Hx Now: No - Nursing Vital Signs Nursing Vital Signs: Initial Vital Signs Temperature 98.3 F 11/27/16 14:13 Pulse Rate 78 11/27/16 14:13 Respiratory Rate 18 11/27/16 14:13 Blood Pressure 126/66 11/27/16 14:13 O2 Sat by Pulse Oximetry 98 11/27/16 14:13 Pain Scale Pain Intensity 7 - Physical Exam General Appearance: alert Eye Exam: PERRL/EOMI Ears, Nose, Throat Exam: moist mucous membranes Neck Exam: normal inspection, non-tender, supple Respiratory Exam: normal breath sounds, lungs clear Cardiovascular Exam: regular rate/rhythm Gastrointestinal/Abdomen Exam: soft, No tenderness, No distention Extremity Exam: normal inspection, normal range of motion, No calf tenderness, No pedal edema Neurologic Exam: alert, oriented x 3, cooperative Skin Exam: warm, dry, No rash SpO2 Interpretation: normal SpO2: 98 Oxygen Delivery: Room Air - Course Nursing assessment & vital signs reviewed: Yes EKG Interpreted by Me: RATE (83), Sinus Rhythm, NORMAL AXIS, NORMAL INTERVALS ( QTc 442), NORMAL QRS, NORMAL ST-T - Radiology Exams cxr X-ray Interpretation: Teleradiologist Report, Negative Ordered Tests: Active Orders 24 hr Category Date Time Status Clean Catch Urine Specimen STAT Care 11/27/16 14:26 Active EKG-ER Only STAT Care 11/27/16 14:27 Active CHEST 2 VIEWS (PA AND LAT) Stat Exams 11/27/16 14:28 Completed CULTURE,URINE Stat Lab 11/27/16 14:35 Received HCG,QUALITATIVE URINE Stat Lab 11/27/16 14:35 Completed UA W/ MICROSCOPIC Stat Lab 11/27/16 14:35 Completed Respiratory Nebulizer STAT RT 11/27/16 14:28 Completed Medication Summary Discontinued Medications Generic Name Dose Route Start Last Admin Trade Name Freq PRN Reason Stop Dose Admin Albuterol Sulfate 2.5 mg 11/27/16 14:27 11/27/16 14:57 Proventil 2.5 Mg/3 Ml Neb IH 11/27/16 14:28 2.5 mg STAT ONE Administration Albuterol Sulfate Confirm 11/27/16 14:55 Proventil 2.5 Mg/3 Ml Neb Administered 11/27/16 14:56 Dose 2.5 mg IH .STK-MED ONE Lab/Rad Data: Laboratory Results 11/27/16 11/27/16 Range/Units 14:35 14:35 Ur Collection Type CCMS Urine Color YELLOW (YELLOW) Urine Appearance CLEAR (CLEAR) Urine pH 5.0 (5-6) Ur Specific [place] 1.025 (1.005-1.025) Urine Protein NEGATIVE (Negative) Urine Ketones NEGATIVE (NEGATIVE) Urine Blood 250 (0-5) Phill/ul Urine Nitrite NEGATIVE (NEGATIVE) Urine Bilirubin NEGATIVE (NEGATIVE) Urine Urobilinogen NORMAL (0-1) mg/dL Ur Leukocyte Esterase TRACE (NEGATIVE) Urine Microscopic RBC 2-5 (0-2) /HPF Urine Microscopic WBC 0-2 (0-5) /HPF Ur Epithelial Cells MANY (FEW) /HPF Urine Bacteria FEW (NEGATIVE) /HPF Urine Glucose NEGATIVE (NEGATIVE) mg/dL Urine HCG, Qual NEGATIVE (Negative) Specimen Received 11-27-16 1450 - Progress Progress Note: 11/27/16 15:05 Instr given for acute bronchitis. Counseled pt/family regarding: lab results, diagnosis, need for follow-up, rad results, smoking cessation - Departure Time of Disposition: 15:05 Departure Disposition: Home Clinical Impression: Acute bronchitis Qualifiers: Bronchitis organism: unspecified organism Qualified Code(s): J20.9 - Acute bronchitis, unspecified Condition: Stable Critical Care Time: No Referrals: KYLIE VINSON [Primary Care Provider] - Instructions: Bronchitis, Quit Smoking, Use a Metered-Dose Inhaler Additional Instructions: UPPER RESPIRATORY INFECTIONS 1. The signs and symptoms of a cold may last up to 10 days. These illnesses are due to viruses which are not treatable with antibiotics. 2. The following suggestions can aid in recovery and to minimize symptoms: A. Increase fluid intake. B. Acetaminophen or Ibuprofen as directed. C. Avoid smoking environments as this will increase the risk of developing pneumonia. D. For children, may use a cool mist vaporizer in the child's room. 3. Contact your Family Physician if you note: A. Persisten fever >103 for more than 3 days B. Breathing difficulty C. Productive cough of yellow/green sputum D. Illness greater than 7 days E. Persistent vomiting F. Stiff neck Rx albuterol MDI. Ibuprofen as directed for discomfort. Follow up with Dr Spring Prescriptions: Albuterol Sulfate [Albuterol Sulfate Hfa] 2 puff IH Q4-6HPRN PRN #1 [email or web address] PRN Reason: cough or wheeze
[2016-11-27 14:54] LABS: Bacteria FEW /HPF (NEGATIVE); Bilirubin NEGATIVE (NEGATIVE); Blood 250 Ery/ul (0-5); COMPLETE URINE MICROSCOPIC? YES; Collection Type CCMS; Epithelial Cells MANY /HPF (FEW); Glucose NEGATIVE (NEGATIVE); Leukocyte Esterase TRACE (NEGATIVE); WBC 0-2 /HPF (0-5)
[2016-11-27 14:55] LABS: ADD URINE CULTURE? YES (NO)
--- NOTE | 2016-11-27 15:01 | XRAY ---
Indication: Cough, congestion, and chest pain. Comparison: None PA/lateral chest demonstrates normal heart, lungs, and bony thorax.
[2016-11-27 15:07] VITALS: BP 124/71; PULSE 86
== END 2016-11-27 15:15 | disposition home or self-care (01) ==
LOC: ED 14:12
DX: J20.9 Acute bronchitis, unspecified (principal)
CPT/HCPCS: 71020; 81000; 84703; 87086; 93005; 94640; 99282; 99285; A9270-GY

== ENCOUNTER 2018-12-01 01:21 | Emergency (ER) | payer MEDICAID, BC | END 2018-12-01 12:36 | disposition home or self-care (01) | LOC: ED 01:21 ==

== ENCOUNTER 2019-11-18 03:32 | Emergency (ER) | payer MEDICAID, OTHER ==
--- NOTE | 2019-11-18 04:12 | ERPHSYRPT ---
- History of Present Illness Source: patient Patient Subjective Stated Complaint: "I had a kidney infection two weeks ago. It started getting better and then four days ago the pain got worse." Triage Nursing Assessment: Pt presetned alert et oriented x3 answering questions appropriately. Pt ambulated to room without assistance or complications. Pt reported left sided flank pain onset two weeks ago of which she was treated for a kidney infection. pt reported worsening pain over the past four weeks that progressed to constant bilateral flank pain that radiates to her abdomen. Pt reported slight vomiting and nausea. pt denied constipation or diarrhea. Pupils 3mm brisk reaction. Oral mucosa pink/moist. Symmetrical chest expansion. radial pulses equal bilateral. Abdomen obese non-distended with diffuse tenderness noted. No noted dependent edema. Physician History: 24 yo wf w B flank pain x 4days/dysuria/frequency/N wo V/D/fever. Timing/Duration: other (4 days) Activites at Onset: none Quality: aching Onset Location: generalized flank Pain Radiation: none Severity of Pain-Max: moderate Severity of Pain-Current: moderate Prior abdominal problems: UTI Modifying Factors: Improves With: urinating Associated Symptoms: dysuria, polyuria, urinary frequency Allergies/Adverse Reactions: No Known Drug Allergies Allergy (Verified 11/18/19 03:38) Hx Tetanus, Diphtheria Vaccination/Date Given: No (unsure) Hx Influenza Vaccination/Date Given: Yes Hx Pneumococcal Vaccination/Date Given: No Travel Risk - International Travel Have you traveled outside of the country in past 3 weeks: No - Coronavirus Screening Are you exhibiting any of the following symptoms?: No Close contact with a COVID-19 positive Pt in past 14-21 Days: No - Review of Systems Constitutional: Chills Eyes: No Symptoms Ears, Nose, & Throat: No Symptoms Respiratory: No Symptoms Cardiac: No Symptoms Abdominal/Gastrointestinal: Nausea, No Vomiting, No Diarrhea, No Hematemesis, No Hematochezia, No Melena, No Dysphagia Genitourinary Symptoms: Dysuria, Frequency, Urgency, Flank Pain, No Hematuria, No Incontinence Musculoskeletal: No Symptoms Skin: No Symptoms Neurological: No Symptoms Psychological: No Symptoms Endocrine: No Symptoms Hematologic/Lymphatic: No Symptoms Immunological/Allergic: No Symptoms - Past Medical History Pertinent Past Medical History: Yes Neurological History: No Pertinent History ENT History: No Pertinent History Cardiac History: No Pertinent History Respiratory History: No Pertinent History Endocrine Medical History: Hypothyroidism Musculoskeletal History: No Pertinent History GI Medical History: No Pertinent History History: No Pertinent History Psycho-Social History: Other Female Reproductive Disorders: Menstrual Problems, Other Other Medical History: sleep problems, alopecia totalis - Past Surgical History Past Surgical History: Yes Neuro Surgical History: No Pertinent History, Brain Shunt Cardiac: No Pertinent History Gastrointestinal: No Pertinent History Genitourinary: No Pertinent History Musculoskeletal: No Pertinent History Female Surgical History: No Pertinent History Other Surgical History: tonils - Social History Smoking Status: Current every day smoker How long have you smoked: 6 year Exposure to second hand smoke: Yes Alcohol Use: Socially Drug Use: none Patient Lives Alone: No Significant Family History: no pertinent family hx - Female History Hx Last Menstrual Period: 10/30/19 Hx Now: No - Nursing Vital Signs Nursing Vital Signs: Initial Vital Signs Temperature 98.9 F 11/18/19 03:33 Pulse Rate 100 H 11/18/19 03:33 Respiratory Rate 18 11/18/19 03:33 Blood Pressure 160/89 11/18/19 03:33 O2 Sat by Pulse Oximetry 97 11/18/19 03:33 Pain Scale Pain Intensity 6 - Physical Exam General Appearance: no apparent distress Eye Exam: PERRL/EOMI, eyes nml inspection Ears, Nose, Throat Exam: normal ENT inspection, TMs normal, pharynx normal, moist mucous membranes Neck Exam: normal inspection, non-tender, supple, No meningismus, No Brudzinski, No Kernig's Respiratory Exam: normal breath sounds, lungs clear, airway intact, No respiratory distress Cardiovascular Exam: tachycardia (Mildly) Gastrointestinal/Abdomen Exam: soft, normal bowel sounds, tenderness (Mild diffuse) Pelvic Exam: not done Back Exam: CVA tenderness Extremity Exam: normal inspection Neurologic Exam: alert, oriented x 3, cooperative, industrial organizational psychologist II-XII nml as tested, normal mood/affect, sensation nml, No motor deficits, No sensory deficit Skin Exam: normal color, warm, dry Lymphatic Exam: No adenopathy SpO2 Interpretation: normal SpO2: 97 - Course Nursing assessment & vital signs reviewed: Yes Ordered Tests: Active Orders 24 hr Category Date Time Status CULTURE,URINE Stat Lab 11/18/19 04:00 Received HCG,QUALITATIVE URINE Stat Lab 11/18/19 04:00 Completed UA W/RFX UR CULTURE Stat Lab 11/18/19 04:00 Completed Medication Summary Generic Name Dose Route Start Last Admin Trade Name Anabell PRN Reason Stop Dose Admin Ceftriaxone Sodium/Dextrose 1 g in 50 mls @ 100 mls/hr 11/18/19 04:21 11/18/19 04:22 Rocephin 1 Gm-D5w 50 Ml Bag IV 11/18/19 04:50 100 mls/hr STAT STA 100 mls/hr Administration Discontinued Medications Generic Name Dose Route Start Last Admin Trade Name Anabell PRN Reason Stop Dose Admin Ceftriaxone Sodium/Dextrose Confirm 11/18/19 04:21 Rocephin 1 Gm-D5w 50 Ml Bag Administered 11/18/19 04:22 Dose 1 g in 50 mls @ ud IV .STK-MED ONE Ketorolac Tromethamine 30 mg 11/18/19 04:21 11/18/19 04:23 Toradol 30 Mg Injection IV 11/18/19 04:22 30 mg STAT ONE Administration Ketorolac Tromethamine Confirm 11/18/19 04:21 Toradol 30 Mg Injection Administered 11/18/19 04:22 Dose 30 mg .ROUTE .STK-MED ONE Lab/Rad Data: Laboratory Results 11/18/19 11/18/19 Range/Units 04:00 04:00 Urine Color [place]ICIA (YELLOW) Urine Appearance CLOUDY (CLEAR) Urine pH 6.0 (5-6) Ur Specific [place] 1.018 (1.005-1.025) Urine Protein NEGATIVE (Negative) Urine Ketones NEGATIVE (NEGATIVE) Urine Blood NEGATIVE (0-5) Phill/ul Urine Nitrite POSITIVE (NEGATIVE) Urine Bilirubin NEGATIVE (NEGATIVE) Urine Urobilinogen 4 (0-1) mg/dL Ur Leukocyte Esterase NEGATIVE (NEGATIVE) Urine WBC (Auto) 3-5 (0-5) /HPF Urine RBC (Auto) 3-5 (0-2) /HPF U Epithel Cells (Auto) MANY (FEW) /HPF Urine Bacteria (Auto) RARE (NEGATIVE) /HPF Urine Culture Reflexed YES (NO) Urine Glucose NEGATIVE (NEGATIVE) mg/dL Urine HCG, Qual NEGATIVE (Negative) - Progress Progress: improved Progress Note: 11/18/19 04:22 30mg IV Toradol/1gm IV Rocephin Blood Culture(s) Obtained: No Antibiotics given: Yes Counseled pt/family regarding: lab results, need for follow-up - Departure Departure Disposition: Home Clinical Impression: UTI (urinary tract infection) Condition: Stable Critical Care Time: No Referrals: KYLIE VINSON [Primary Care Provider] - Instructions: Urinary Tract Infection, Adult (DC) Additional Instructions: Fluids/Motrin-tylenol for pain Start Bactrim in AM Follow up with family MD in 2-3 days Return to ER for increasing pain or temperature greater than 100.5 Prescriptions: Sulfamethoxazole/Trimethoprim [Bactrim Ds Tablet] 1 each PO BID 5 Days #10 tablet
[2019-11-18 04:18] LABS: Appearance CLOUDY (CLEAR); Bacteria RARE /HPF (NEGATIVE); Bilirubin NEGATIVE (NEGATIVE); Blood NEGATIVE Ery/ul (0-5); Epithelial Cells MANY /HPF (FEW); Glucose NEGATIVE (NEGATIVE); Ketones NEGATIVE (NEGATIVE); Leukocyte Esterase NEGATIVE (NEGATIVE); Nitrite POSITIVE (NEGATIVE); Protein,Urine Dip NEGATIVE (Negative); Specific Gravity 1.018 (1.005-1.025); Urobilinogen 4 mg/dL (0-1)
[2019-11-18] MEDS ORDERED: ROCEPHIN 1 Gm-D5w 50 ml Bag** 1 G/50 ML IVPB IV STA (04:21)
[2019-11-18] MEDS ORDERED: ROCEPHIN 1 Gm-D5w 50 ml Bag** 1 G/50 ML IVPB IV ONE (04:21)
[2019-11-18] MEDS ORDERED: TORAdol 30 mg Injection ONE (04:21)
[2019-11-18] MEDS ORDERED: TORAdol 30 mg Injection IV ONE (04:21)
[2019-11-18 04:36] VITALS: BP 128/79; PULSE 82; O2SAT 98
== END 2019-11-18 05:03 | disposition home or self-care (01) ==
LOC: ED 03:32
DX: N39.0 Urinary tract infection, site not specified (principal)
CPT/HCPCS: 36000; 81001; 84703; 87086; 96365; 96374; 99284; J0696; J1885

== ENCOUNTER 2020-07-23 03:30 | Emergency (ER) | payer OTHER ==
--- NOTE | 2020-07-23 04:12 | ERPHSYRPT ---
- History of Present Illness Time Seen by Provider: 07/23/20 03:40 Historian: patient Exam Limitations: no limitations Patient Subjective Stated Complaint: pt states she woke up tonight with chest pain. describes pain as sharp and tightness. states pain woke her up. Triage Nursing Assessment: pt alert and oriented, answers questions approp. pt ambulatory from wheelchair to stretcher with steady gait noted. respirations nonlabored with lungs cta. heart rate 86 on monitor, sinus rhythm. radial pulses and cap refill wnl. Physician History: Patient is a 25-year-old female presents to our ED with complaints of chest vladimir n. Patient states the pain awoke her from sleep. Pain is described as a sharp tight sensation. No radiation. No associated nausea vomiting or diaphoresis. Symptoms are mild to moderate in intensity. No specific worsening or improving factors. No trauma. No fever. 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 Timing/Duration: today Activities at Onset: none Quality: aching Location: substernal Chest Pain Radiation: no radiation Severity of Pain-Max: moderate Severity of Pain-Current: mild Modifying Factors: Improves With: other (Palpation to left chest wall reproduces symptoms.) Associated Symptoms: denies symptoms, No nausea, No palpitations, No cough, No hurts to breathe, No diaphoresis, No fever, No fatigue, No syncope, No dizziness, No edema Prior Chest Pain/Cardiac Workup: no prior chest pain Nitro Today/Relief: no nitro taken today Aspirin Treatment Today: no aspirin today Allergies/Adverse Reactions: No Known Drug Allergies Allergy (Verified 07/23/20 03:53) Hx Tetanus, Diphtheria Vaccination/Date Given: No (unsure) Hx Influenza Vaccination/Date Given: Yes Hx Pneumococcal Vaccination/Date Given: No Immunizations Up to Date: Yes Travel Risk - International Travel Have you traveled outside of the country in past 3 weeks: No - Coronavirus Screening Are you exhibiting any of the following symptoms?: No Close contact with a COVID-19 positive Pt in past 14-21 Days: No - Vaccine Status Have you recieved a Covid-19 vaccination: Yes Textiles Printer: Moderna - Vaccination Dates Date of 2cond Vaccination (if applicable): 05/05/20 - Review of Systems Constitutional: No Symptoms, No Fever, No Chills Eyes: No Symptoms Ears, Nose, & Throat: No Symptoms Respiratory: No Symptoms, No Cough, No Dyspnea Cardiac: No Symptoms, No Chest Pain, No Edema, No Syncope Abdominal/Gastrointestinal: No Symptoms, No Abdominal Pain, No Nausea, No Vomiting, No Diarrhea Genitourinary Symptoms: No Symptoms, No Dysuria Musculoskeletal: No Symptoms, No Back Pain, No Neck Pain Skin: No Symptoms, No Rash Neurological: No Symptoms, No Dizziness, No Focal Weakness, No Sensory Changes Psychological: No Symptoms Endocrine: No Symptoms Hematologic/Lymphatic: No Symptoms Immunological/Allergic: No Symptoms All Other Systems: Reviewed and Negative - Past Medical History Pertinent Past Medical History: Yes Neurological History: Migraines ENT History: No Pertinent History Cardiac History: No Pertinent History Respiratory History: No Pertinent History Endocrine Medical History: Hypothyroidism Musculoskeletal History: No Pertinent History GI Medical History: No Pertinent History History: No Pertinent History Psycho-Social History: Anxiety, Other Female Reproductive Disorders: Menstrual Problems, Other Other Medical History: sleep problems, alopecia totalis - Past Surgical History Past Surgical History: Yes Neuro Surgical History: No Pertinent History Cardiac: No Pertinent History Gastrointestinal: No Pertinent History Genitourinary: No Pertinent History Musculoskeletal: No Pertinent History Female Surgical History: No Pertinent History Other Surgical History: tonils - Social History Smoking Status: Current every day smoker How long have you smoked: 8 year Exposure to second hand smoke: Yes Alcohol Use: Socially Drug Use: none Patient Lives Alone: No Significant Family History: no pertinent family hx - Female History Hx Last Menstrual Period: july 12- Hx Now: No - Nursing Vital Signs Nursing Vital Signs: Initial Vital Signs Temperature 98.8 F 07/23/20 03:31 Pulse Rate 86 07/23/20 03:31 Respiratory Rate 18 07/23/20 03:31 Blood Pressure 134/87 07/23/20 03:31 O2 Sat by Pulse Oximetry 100 07/23/20 03:31 Pain Scale Pain Intensity 5 - Physical Exam General Appearance: no apparent distress, alert Eye Exam: PERRL/EOMI, eyes nml inspection Ears, Nose, Throat Exam: normal ENT inspection, moist mucous membranes Neck Exam: normal inspection, non-tender, supple, full range of motion Respiratory Exam: normal breath sounds, lungs clear, No respiratory distress Cardiovascular Exam: regular rate/rhythm, normal heart sounds, other (Pain repro duced with palpation to left chest.) Gastrointestinal/Abdomen Exam: soft, No tenderness, No mass Back Exam: normal inspection, No CVA tenderness, No vertebral tenderness Extremity Exam: normal inspection, normal range of motion Neurologic Exam: alert, oriented x 3, cooperative, normal mood/affect, sensation nml, No motor deficits Skin Exam: normal color, warm, dry SpO2 Interpretation: normal SpO2: 99 O2 Delivery: Room Air - Course Nursing assessment & vital signs reviewed: Yes EKG Interpreted by Me: RATE, Sinus Rhythm, NORMAL AXIS, NORMAL INTERVALS - CT Exams Chest CT Interpretation: Tele-radiologist Report (No convincing evidence of a large central main pulmonary artery embolus. No evidence of an acute infiltrate. A 6 mm noncalcified semisolid nodule in the right lower lobe. 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 Chain Generalist STAT Care 07/23/20 03:58 Active EKG-ER Only STAT Care 07/23/20 03:56 Active IV Insertion STAT Care 07/23/20 03:56 Active Pulse Oximetry (ED) STAT Care 07/23/20 03:56 Active CHEST WITH CONTRAST [CT] Stat Exams 07/23/20 04:30 Taken CBC W DIFF Stat Lab 07/23/20 04:00 Completed CMP Stat Lab 07/23/20 04:00 Completed D-DIMER QUANTITATIVE Stat Lab 07/23/20 04:00 Completed HCG,QUALITATIVE URINE Stat Lab 07/23/20 04:25 Completed MAGNESIUM Stat Lab 07/23/20 04:00 Completed TROPONIN Q3H Lab 07/23/20 04:00 Completed TROPONIN Q3H Lab 07/23/20 06:10 Received TROPONIN Q3H Lab 07/23/20 10:00 Ordered TROPONIN Q3H Lab 07/23/20 13:00 Ordered TROPONIN Q3H Lab 07/23/20 16:00 Ordered UA W/RFX UR CULTURE Stat Lab 07/23/20 04:25 Completed Urine Triage Profile Stat Lab 07/23/20 04:25 Completed Medication Summary Discontinued Medications Generic Name Dose Route Start Last Admin Trade Name Freq PRN Reason Stop Dose Admin Aspirin 324 mg 07/23/20 04:21 07/23/20 04:29 Baby Aspirin 81 Mg Chew PO 07/23/20 04:22 324 mg STAT ONE Administration Aspirin Confirm 07/23/20 04:27 Baby Aspirin 81 Mg Chew Administered 07/23/20 04:28 Dose 324 mg .ROUTE .STK-MED ONE Nitroglycerin 1 gm 07/23/20 04:22 07/23/20 04:28 Nitro-Bid 2% Ud Packets TOP 07/23/20 04:23 1 gm STAT ONE Administration Nitroglycerin Confirm 07/23/20 04:26 Nitro-Bid 2% Ud Packets Administered 07/23/20 04:27 Dose 1 gm .ROUTE .STK-MED ONE Lab/Rad Data: Laboratory Result Diagrams 07/23/20 04:00 07/23/20 04:00 Laboratory Results 07/23/20 07/23/20 07/23/20 Range/Units 04:25 04:25 04:25 WBC (4.0-10.5) K/mm3 RBC (4.1-5.4) M/mm3 Hgb (12.0-16.0) gm/dl Hct (35-47) % MCV (78-100) fl MCH (26-32) pg MCHC (32-36) g/dl RDW (11.5-14.0) % Plt Count (150-450) K/mm3 MPV (7.5-11.0) fl Gran % (36.0-66.0) % Eos # (Auto) (0-0.5) Absolute Lymphs (auto) (1.0-4.6) Absolute Monos (auto) (0.0-1.3) Lymphocytes % (24.0-44.0) % Monocytes % (0.0-12.0) % Eosinophils % (0.00-5.0) % Basophils % (0.0-0.4) % Absolute Granulocytes (1.4-6.9) Basophils # (0-0.4) D-Dimer (215-500) ng/mL Sodium (137-145) mmol/L Potassium (3.5-5.1) mmol/L Chloride (98-107) mmol/L Carbon Dioxide (22-30) mmol/L Anion Gap (5-15) MEQ/L BUN (7-17) mg/dL Creatinine (0.52-1.04) mg/dL Estimated GFR ML/MIN Glucose (74-106) mg/dL Calcium (8.4-10.2) mg/dL Magnesium (1.6-2.3) mg/dL Total Bilirubin (0.2-1.3) mg/dL AST (14-36) U/L ALT (0-35) U/L Alkaline Phosphatase (38-126) U/L Troponin I (0.000-0.034) ng/mL Serum Total Protein (6.3-8.2) g/dL Albumin (3.5-5.0) g/dL Urine Color YELLOW (YELLOW) Urine Appearance SLIGHTLY CLOUDY (CLEAR) Urine pH 9.0 (5-6) Ur Specific Hopkins 1.015 (1.005-1.025) Urine Protein 30 (Negative) Urine Ketones TRACE (NEGATIVE) Urine Blood NEGATIVE (0-5) Phill/ul Urine Nitrite NEGATIVE (NEGATIVE) Urine Bilirubin NEGATIVE (NEGATIVE) Urine Urobilinogen NEGATIVE (0-1) mg/dL Ur Leukocyte Esterase NEGATIVE (NEGATIVE) Urine WBC (Auto) 0-2 (0-5) /HPF Urine RBC (Auto) NONE (0-2) /HPF U Epithel Cells (Auto) RARE (FEW) /HPF Urine Bacteria (Auto) NONE (NEGATIVE) /HPF Urine Culture Reflexed NO (NO) Urine Glucose NEGATIVE (NEGATIVE) mg/dL Urine HCG, Qual NEGATIVE (Negative) Urine Opiates Level NEGATIVE (NEGATIVE) Ur Methadone NEGATIVE (NEGATIVE) Urine Barbiturates NEGATIVE (NEGATIVE) Ur Phencyclidine (PCP) NEGATIVE (NEGATIVE) Urine Amphetamine NEGATIVE (NEGATIVE) U Benzodiazepine Level NEGATIVE (NEGATIVE) Urine Cocaine NEGATIVE (NEGATIVE) Urine Marijuana (THC) NEGATIVE (NEGATIVE) 07/23/20 07/23/20 07/23/20 Range/Units 04:00 04:00 04:00 WBC (4.0-10.5) K/mm3 RBC (4.1-5.4) M/mm3 Hgb (12.0-16.0) gm/dl Hct (35-47) % MCV (78-100) fl MCH (26-32) pg MCHC (32-36) g/dl RDW (11.5-14.0) % Plt Count (150-450) K/mm3 MPV (7.5-11.0) fl Gran % (36.0-66.0) % Eos # (Auto) (0-0.5) Absolute Lymphs (auto) (1.0-4.6) Absolute Monos (auto) (0.0-1.3) Lymphocytes % (24.0-44.0) % Monocytes % (0.0-12.0) % Eosinophils % (0.00-5.0) % Basophils % (0.0-0.4) % Absolute Granulocytes (1.4-6.9) Basophils # (0-0.4) D-Dimer 524 H* (215-500) ng/mL Sodium 142 (137-145) mmol/L Potassium 3.5 (3.5-5.1) mmol/L Chloride 106 (98-107) mmol/L Carbon Dioxide 25 (22-30) mmol/L Anion Gap 13.5 (5-15) MEQ/L BUN 5 L (7-17) mg/dL Creatinine 0.73 (0.52-1.04) mg/dL Estimated GFR > 60.0 ML/MIN Glucose 107 H (74-106) mg/dL Calcium 9.3 (8.4-10.2) mg/dL Magnesium 2.0 (1.6-2.3) mg/dL Total Bilirubin 0.20 (0.2-1.3) mg/dL AST 35 (14-36) U/L ALT 38 H (0-35) U/L Alkaline Phosphatase 101 (38-126) U/L Troponin I < 0.012 (0.000-0.034) ng/mL Serum Total Protein 7.5 (6.3-8.2) g/dL Albumin 4.4 (3.5-5.0) g/dL Urine Color (YELLOW) Urine Appearance (CLEAR) Urine pH (5-6) Ur Specific Hopkins (1.005-1.025) Urine Protein (Negative) Urine Ketones (NEGATIVE) Urine Blood (0-5) Phill/ul Urine Nitrite (NEGATIVE) Urine Bilirubin (NEGATIVE) Urine Urobilinogen (0-1) mg/dL Ur Leukocyte Esterase (NEGATIVE) Urine WBC (Auto) (0-5) /HPF Urine RBC (Auto) (0-2) /HPF U Epithel Cells (Auto) (FEW) /HPF Urine Bacteria (Auto) (NEGATIVE) /HPF Urine Culture Reflexed (NO) Urine Glucose (NEGATIVE) mg/dL Urine HCG, Qual (Negative) Urine Opiates Level (NEGATIVE) Ur Methadone (NEGATIVE) Urine Barbiturates (NEGATIVE) Ur Phencyclidine (PCP) (NEGATIVE) Urine Amphetamine (NEGATIVE) U Benzodiazepine Level (NEGATIVE) Urine Cocaine (NEGATIVE) Urine Marijuana (THC) (NEGATIVE) 07/23/20 Range/Units 04:00 WBC 14.0 H (4.0-10.5) K/mm3 RBC 4.66 (4.1-5.4) M/mm3 Hgb 10.9 L (12.0-16.0) gm/dl Hct 36.2 (35-47) % MCV 77.7 L (78-100) fl MCH 23.4 L (26-32) pg MCHC 30.1 L (32-36) g/dl RDW 17.1 H (11.5-14.0) % Plt Count 509 H (150-450) K/mm3 MPV 9.6 (7.5-11.0) fl Gran % 76.1 H (36.0-66.0) % Eos # (Auto) 0.03 (0-0.5) Absolute Lymphs (auto) 2.93 (1.0-4.6) Absolute Monos (auto) 0.38 (0.0-1.3) Lymphocytes % 20.9 L (24.0-44.0) % Monocytes % 2.7 (0.0-12.0) % Eosinophils % 0.2 (0.00-5.0) % Basophils % 0.1 (0.0-0.4) % Absolute Granulocytes 10.63 H (1.4-6.9) Basophils # 0.02 (0-0.4) D-Dimer (215-500) ng/mL Sodium (137-145) mmol/L Potassium (3.5-5.1) mmol/L Chloride (98-107) mmol/L Carbon Dioxide (22-30) mmol/L Anion Gap (5-15) MEQ/L BUN (7-17) mg/dL Creatinine (0.52-1.04) mg/dL Estimated GFR ML/MIN Glucose (74-106) mg/dL Calcium (8.4-10.2) mg/dL Magnesium (1.6-2.3) mg/dL Total Bilirubin (0.2-1.3) mg/dL AST (14-36) U/L ALT (0-35) U/L Alkaline Phosphatase (38-126) U/L Troponin I (0.000-0.034) ng/mL Serum Total Protein (6.3-8.2) g/dL Albumin (3.5-5.0) g/dL Urine Color (YELLOW) Urine Appearance (CLEAR) Urine pH (5-6) Ur Specific Hopkins (1.005-1.025) Urine Protein (Negative) Urine Ketones (NEGATIVE) Urine Blood (0-5) Phill/ul Urine Nitrite (NEGATIVE) Urine Bilirubin (NEGATIVE) Urine Urobilinogen (0-1) mg/dL Ur Leukocyte Esterase (NEGATIVE) Urine WBC (Auto) (0-5) /HPF Urine RBC (Auto) (0-2) /HPF U Epithel Cells (Auto) (FEW) /HPF Urine Bacteria (Auto) (NEGATIVE) /HPF Urine Culture Reflexed (NO) Urine Glucose (NEGATIVE) mg/dL Urine HCG, Qual (Negative) Urine Opiates Level (NEGATIVE) Ur Methadone (NEGATIVE) Urine Barbiturates (NEGATIVE) Ur Phencyclidine (PCP) (NEGATIVE) Urine Amphetamine (NEGATIVE) U Benzodiazepine Level (NEGATIVE) Urine Cocaine (NEGATIVE) Urine Marijuana (THC) (NEGATIVE) - Progress Progress: improved Air Movement: good Progress Note: Work-up reveals a mild leukocytosis, microcytic anemia and thrombocytosis. Troponin negative x2. CT chest negative for PE however there was an incidental right lower lobe lung nodule measuring 6 mm. Patient is aware and agrees to follow-up with her primary care doctor to repeat a CAT scan in 6 months to reevaluate this lung nodule. Patient voiced no other complaints or concerns at this time. She agrees to follow-up with her primary care doctor within 48 hours for reevaluation. Patient states she is ready for discharge. Will discharge home at this time. 07/23/20 06:40 Blood Culture(s) Obtained: No Antibiotics given: No Counseled pt/family regarding: lab results, diagnosis, need for follow-up, rad results, smoking cessation - Departure Departure Disposition: Home Clinical Impression: Leukocytosis, Microcytic anemia, Chest pain, Thrombocytosis, Chest wall muscle strain Condition: Stable Critical Care Time: No Referrals: KYLIE VINSON [Primary Care Provider] - Additional Instructions: Your CT scan reveals a 6 mm noncalcified semisolid nodule in the right lower lobe of your lung. You will require a follow-up unenhanced CT of the chest in 6 months. Please follow-up with your primary care doctor so that you can obtain a repeat CAT scan to reassess that lung nodule found on todays CAT scan. Discharge/Care Plan MIKE BENSON was seen on 07/23/20 in the Emergency Room. The patient was counseled regarding Diagnosis,Lab results, Imaging studies, need for follow up and when to return to the Emergency Room. Prescriptions given: Discharge Note I have spoken with the patient and/or caregivers. I have explained the patient's condition, diagnosis and treatment plan based on the information available to me at this time. I have answered the patient's and/or caregiver's questions and addressed any concerns. The patient and/or caregivers have as good understanding of the patient's diagnosis, condition and treatment plan as can be expected at this point. The vital signs have been stable. The patient's condition is stable and appropriate for discharge from the emergency department. The patient will pursue further outpatient evaluation with the primary care physician or other designated or consulting physician as outlined in the discharge instructions. The patient and/or caregivers are agreeable to this plan of care and follow-up instructions have been explained in detail. The patient and/or caregivers have received these instruction. The patient/and or caregivers are aware that any significant change in condition or worsening of symptoms should prompt an immediate return to this or the closest emergency department or call 911. Forms: Work/School Release Form
[2020-07-23] MEDS ORDERED: BABY ASPIRIN 81 MG CHEW PO ONE (04:21)
[2020-07-23] MEDS ORDERED: NITRO-BID 2% UD PACKETS TOP ONE (04:22)
[2020-07-23 04:26] LABS: ALBUMIN 4.4 g/dL (3.5-5.0); ALKALINE PHOSPHATASE 101 U/L (38-126); ANION GAP 13.5 MEQ/L (5-15); BLOOD UREA NITROGEN 5 mg/dL (7-17); CHLORIDE 106 mmol/L (98-107); Calcium 9.3 mg/dL (8.4-10.2); Carbon Dioxide 25 mmol/L (22-30); Creatinine 1 0.73 mg/dL (0.52-1.04); EST GLOMERULAR FILTRATION RATE > 60.0 ML/MIN; Glucose 107 mg/dL (74-106); Potassium 3.5 mmol/L (3.5-5.1); SGOT/AST 35 U/L (14-36); SGPT/ALT 38 U/L (0-35); SODIUM 142 mmol/L (137-145); Total Protein 7.5 g/dL (6.3-8.2)
[2020-07-23] MEDS ORDERED: NITRO-BID 2% UD PACKETS ONE (04:26)
[2020-07-23] MEDS ORDERED: BABY ASPIRIN 81 MG CHEW ONE (04:27)
[2020-07-23 04:38] LABS: Absolute Neutrophil Ct (ANC) 10.63 (1.4-6.9); BASOPHIL % 0.1 % (0.0-0.4); Basophil (Absolute #) 0.02 (0-0.4); Eosinophil % 0.2 % (0.00-5.0); Eosinophil (Absolute #) 0.03 (0-0.5); Hematocrit 36.2 % (35-47); Hemoglobin 10.9 gm/dl (12.0-16.0); Lymphocyte (Absolute #) 2.93 (1.0-4.6); Lymphocytes % 20.9 % (24.0-44.0); Mean Cell Volume 77.7 fl (78-100); Mean Corpuscular Hemoglobin 23.4 pg (26-32); Mean Corpuscular Hgb Concent. 30.1 g/dl (32-36); Mean Platelet Volume 9.6 fl (7.5-11.0); Monocyte (Absolute #) 0.38 (0.0-1.3); Monocytes % 2.7 % (0.0-12.0); Neutrophil % 76.1 % (36.0-66.0); Platelet Count 509 K/mm3 (150-450); Red Blood Count 4.66 M/mm3 (4.1-5.4); Red Cell Distribution Width 17.1 % (11.5-14.0)
[2020-07-23 04:38] LABS: Appearance SLIGHTLY CLOUDY (CLEAR); Bilirubin NEGATIVE (NEGATIVE); Blood NEGATIVE Ery/ul (0-5); Epithelial Cells RARE /HPF (FEW); Glucose NEGATIVE (NEGATIVE); Ketones TRACE (NEGATIVE); Leukocyte Esterase NEGATIVE (NEGATIVE); Nitrite NEGATIVE (NEGATIVE); Protein,Urine Dip 30 (Negative); Specific Gravity 1.015 (1.005-1.025); Urobilinogen NEGATIVE mg/dL (0-1); WBC 0-2 /HPF (0-5)
[2020-07-23 04:50] LABS: Amphetamine,Urine NEGATIVE (NEGATIVE); Barbiturate,Urine NEGATIVE (NEGATIVE); Benzodiazepine,Urine NEGATIVE (NEGATIVE); Cocaine,Urine NEGATIVE (NEGATIVE); Methadone,Urine NEGATIVE (NEGATIVE); Opiate,Urine NEGATIVE (NEGATIVE); PCP,Urine NEGATIVE (NEGATIVE); THC,Urine NEGATIVE (NEGATIVE)
[2020-07-23 06:54] VITALS: PULSE 83
[2020-07-23 07:01] VITALS: BP 125/88; O2SAT 98
--- NOTE | 2020-07-23 08:56 | XRAY ---
Indication: Chest pain and short of breath. Elevated d-dimer. Multiple contiguous axial images obtained through the chest using 80 cc Isovue 370 contrast and PE protocol. Comparison: None There is poor opacification of the pulmonary arteries limiting evaluation for pulmonary embolus. No obvious large central pulmonary embolus. Heart is not enlarged. Aorta is normal in course and caliber. No pathologic mediastinal/hilar lymphadenopathy. Lungs are inflated with 6 mm posterior right lower lobe noncalcified nodule probably granulomatous in this demographic. Remaining lungs are clear. Bony thorax intact. Limited upper abdomen demonstrates fatty liver. Impression: 1. Pulmonary embolus evaluation limited due to suboptimal contrast opacification. No obvious central pulmonary embolus or acute cardiopulmonary abnormalities. 2. Incidental right lower lobe noncalcified micro-nodule probably granulomatous and fatty liver. Comment: Preliminary interpretation was made by [facility]. No critical discrepancy
== END 2020-07-23 07:01 | disposition home or self-care (01) ==
LOC: ED 03:30
DX: D72.829 Elevated white blood cell count, unspecified (principal); D64.89 Other specified anemias; R07.9 Chest pain, unspecified; D47.3 Essential (hemorrhagic) thrombocythemia; S29.011A Strain of muscle and tendon of front wall of thorax, initial encounter; S21.90XA Unspecified open wound of unspecified part of thorax, initial encounter
CPT/HCPCS: 36000; 36415; 71260; 80053; 80307; 81001; 83735; 84484; 84703; 85025; 85379; 93005; 93041; 94760; 99284; A9270-GY

== ENCOUNTER → 2022-08-27 | Emergency (ER) | payer SELFPAY ==
--- NOTE | 2022-08-27 22:29 | ERPHSYRPT ---
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 - Vaccination Dates Date of 2cond Vaccination (if applicable): 05/05/20 - Past Medical History Pertinent Past Medical History: Yes Neurological History: Migraines ENT History: No Pertinent History Cardiac History: No Pertinent History Respiratory History: No Pertinent History Endocrine Medical History: Hypothyroidism Musculoskeletal History: No Pertinent History GI Medical History: No Pertinent History History: No Pertinent History Psycho-Social History: Anxiety, Other Female Reproductive Disorders: Menstrual Problems, Other Other Medical History: sleep problems, alopecia totalis - Past Surgical History Past Surgical History: Yes Neuro Surgical History: No Pertinent History Cardiac: No Pertinent History Gastrointestinal: No Pertinent History Genitourinary: No Pertinent History Musculoskeletal: No Pertinent History Female Surgical History: No Pertinent History Other Surgical History: tonils - Social History Smoking Status: Current every day smoker How long have you smoked: 8 year Exposure to second hand smoke: Yes Alcohol Use: Socially Drug Use: none Patient Lives Alone: No Significant Family History: no pertinent family hx - Departure Referrals: ARJUN LEVINE MD [Primary Care Provider] - Follow up/PCP as directed
== END ==
LOC: ED 22:22
DX: Z53.21 Procedure and treatment not carried out due to patient leaving prior to being seen by health care provider (principal)

== ENCOUNTER 2023-02-26 00:18 | Emergency (ER) | payer MEDICAID ==
[2023-02-26 00:31] VITALS: TEMP 97; O2SAT 97
[2023-02-26] MEDS ORDERED: TETRACAINE 0.5% STERI-UNIT SOL OP ONE (00:42)
[2023-02-26] MEDS ORDERED: Fluor-I-Strip/Ful-Flo OP ONE (00:42)
[2023-02-26] MEDS: Fluor-I-Strip/Ful-Flo OP ONE (00:47)
[2023-02-26] MEDS: TETRACAINE 0.5% STERI-UNIT SOL OP STA (00:47)
[2023-02-26] MEDS ORDERED: PERCOCET TABLET 5/325MG ONE (01:12)
[2023-02-26] MEDS ORDERED: Ocuflox OPHTHALMIC 5 ML OP ONE (01:12)
[2023-02-26] MEDS: Ocuflox OPHTHALMIC 5 ML OP SCH (01:13)
[2023-02-26] MEDS: PERCOCET TABLET 5/325MG PO ONE (01:14)
--- NOTE | 2023-02-26 01:14 | ERPHSYRPT ---
- History of Present Illness Time Seen by Provider: 02/26/23 00:20 Source: patient Exam Limitations: no limitations Patient Subjective Stated Complaint: pt states "I think there is a contact lost in my eye and I can't get it out." Triage Nursing Assessment: pt ambulatory to bed with assistance of significant other, pt alert and oriented x3, skin pwd, etoh on board, pt c/o L eye pain and believes there is a contact lost in her eye. bilateral scleras reddened and watering, pt states she tried to rinse out eye with saline wash at home with no relief. Physician History: 27 years old female up-to-date with tetanus presented in the ER with chief complaint of left eye redness and pain. Patient reports she thinks she scratched her eye while taking out her contact lens and is unsure whether it is still in there. Patient report constant sharp pain in the left eye with exacerbation of the movements and with bright light. Watering of left eye. Allergies/Adverse Reactions: No Known Drug Allergies Allergy (Verified 02/26/23 00:24) Home Medications: No Reportable Medications [No Reported Medications] 02/26/23 [History] Hx Tetanus, Diphtheria Vaccination/Date Given: Yes (unsure) Hx Influenza Vaccination/Date Given: No Hx Pneumococcal Vaccination/Date Given: No Travel Risk - International Travel Have you traveled outside of the country in past 3 weeks: No - Coronavirus Screening Are you exhibiting any of the following symptoms?: No Close contact with a COVID-19 positive Pt in past 14-21 Days: No - Vaccine Status Have you recieved a Covid-19 vaccination: Yes Nutrient Management Specialist: Moderna - Vaccination Dates Date of 2cond Vaccination (if applicable): 05/05/20 - Review of Systems Constitutional: No Symptoms Eyes: Eye Pain, Eye Redness, Itchy, Photophobia, Vision Changes, Foreign Body Sensation Ears, Nose, & Throat: No Symptoms Respiratory: No Symptoms Cardiac: No Symptoms Abdominal/Gastrointestinal: No Symptoms Neurological: No Symptoms Endocrine: No Symptoms - Past Medical History Pertinent Past Medical History: Yes Neurological History: Migraines ENT History: No Pertinent History Cardiac History: No Pertinent History Respiratory History: No Pertinent History Endocrine Medical History: Hypothyroidism Musculoskeletal History: No Pertinent History GI Medical History: No Pertinent History History: No Pertinent History Psycho-Social History: Anxiety, Other Female Reproductive Disorders: Menstrual Problems, Other Other Medical History: sleep problems, alopecia totalis - Past Surgical History Past Surgical History: Yes Neuro Surgical History: No Pertinent History Cardiac: No Pertinent History Gastrointestinal: No Pertinent History Genitourinary: No Pertinent History Musculoskeletal: No Pertinent History Female Surgical History: No Pertinent History Other Surgical History: tonils - Social History Smoking Status: Current every day smoker How long have you smoked: 8 year Exposure to second hand smoke: Yes Alcohol Use: Socially Drug Use: none Patient Lives Alone: No Significant Family History: no pertinent family hx - Female History Hx Last Menstrual Period: 02/18/23 Hx Now: No - Nursing Vital Signs Nursing Vital Signs: Initial Vital Signs Temperature 97.0 F 02/26/23 00:26 Pulse Rate 86 02/26/23 00:26 Respiratory Rate 18 02/26/23 00:26 Blood Pressure 120/78 02/26/23 00:26 O2 Sat by Pulse Oximetry 97 02/26/23 00:26 Pain Scale Pain Intensity 7 - Physical Exam General Appearance: no apparent distress, alert Vision Acuity Degree Evaluation Phase: Corrected Vision Acuity Right Eye: see note Vision Acuity Left Eye: see note Eye Exam: left eye: conjunctival hemorrhage, conjunctival inflammation, corneal abrasion (Multiple abrasion with fluorescein uptake at 9:00, 12:00 and 4 o'clock position.), erythema, vision changes, bilateral eye: PERRL, EOMI Ears, Nose, Throat Exam: normal ENT inspection, TMs normal, pharynx normal, moist mucous membranes Neck Exam: normal inspection, non-tender, supple, full range of motion Respiratory Exam: normal breath sounds, lungs clear Cardiovascular Exam: regular rate/rhythm, normal heart sounds Extremity Exam: normal inspection Neurologic: alert, oriented x 3, cooperative, photographer's model II-XII nml as tested Skin Exam: normal color SpO2 Interpretation: normal SpO2: 97 O2 Delivery: Room Air Ordered Tests: Medication Summary Generic Name Dose Route Start Last Admin Trade Name Freq PRN Reason Stop Dose Admin Ofloxacin 5 ml 02/26/23 10:00 02/26/23 01:13 Ofloxacin 0.3% Opth 5 Ml Eye Drops OP 03/28/23 09:59 5 ml QID PEPE Administration Discontinued Medications Generic Name Dose Route Start Last Admin Trade Name Freq PRN Reason Stop Dose Admin Fluorescein Sodium Confirm 02/26/23 00:42 Fluorescein Sodium 1 Mg/Strip Strip Administered 02/26/23 00:43 Dose 1 mg OP .STK-MED ONE Fluorescein Sodium 1 mg 02/26/23 00:44 02/26/23 00:47 Fluorescein Sodium 1 Mg/Strip Strip OP 02/26/23 00:45 1 mg STAT ONE Administration Oxycodone/Acetaminophen 1 tab 02/26/23 01:02 02/26/23 01:14 Oxycodone Hcl/Apap 5 Mg/325 Mg Tablet PO 02/26/23 01:03 1 tab STAT ONE Administration Oxycodone/Acetaminophen Confirm 02/26/23 01:12 Oxycodone Hcl/Apap 5 Mg/325 Mg Tablet Administered 02/26/23 01:13 Dose 1 tab .ROUTE .STK-MED ONE Tetracaine HCl Confirm 02/26/23 00:42 Tetracaine Hcl/Pf 4 Ml Bottle Administered 02/26/23 00:43 Dose 4 ml OP .STK-MED ONE Tetracaine HCl 4 ml 02/26/23 00:44 02/26/23 00:47 Tetracaine Hcl/Pf 4 Ml Bottle OP 02/26/23 00:45 4 ml STAT STA Administration - Progress Progress: improved Progress Note: 02/26/23 01:27 27 years old female up-to-date with tetanus presented in the ER with chief complaint of left eye redness and pain. Patient reports she thinks she scratched her eye while taking out her contact lens and is unsure whether it is still in there. Patient report constant sharp pain in the left eye with exacerbation of the movements and with bright light. Watering of left eye. Reports having foreign body sensations. Patient has no hyphema, no swelling of lids are globe rupture. Has abrasion on the cornea. She is given tetracaine followed by fluorescein exam which is po sitive for uptake in the cornea. She is given [place] for symptomatic relief. Patient refused to have visual acuity checked. Started on ofloxacin. Recommended outpatient ophthalmology/optometry follow-up. Recommended not to use contacts until she is fully healed and continue with ofloxacin eyedrops. Recommended using eye patch and artificial tears. Discussed signs symptoms of worsening needing return to ER which she seems understanding. Stable for discharge. Counseled pt/family regarding: diagnosis, need for follow-up - Departure Departure Disposition: Home Clinical Impression: Corneal abrasion due to contact lens Condition: Stable Critical Care Time: No Referrals: ARJUN LEVINE MD [Primary Care Provider] - Follow up/PCP as directed Instructions: Corneal Abrasion (DC) Additional Instructions: Continue with ofloxacin eyedrops given to you in the ER 2 drops 4 times a day and follow-up with ophthalmology/escape wheel tooth cutter in the morning. Do not use contact lenses. Use eye patch/artificial tears. Return to ER for worsening pain, visual disturbance, discharge etc.
[2023-02-26 01:21] VITALS: BP 132/81; PULSE 78; RESP 17
== END 2023-02-26 01:52 | disposition home or self-care (01) ==
LOC: ED 00:18
DX: H18.822 Corneal disorder due to contact lens, left eye (principal); H57.12 Ocular pain, left eye; Z72.0 Tobacco use
CPT/HCPCS: 99282; A9270-GY

== ENCOUNTER 2023-05-23 02:12 | Emergency (ER) | payer MEDICAID, OTHER ==
[2023-05-23 02:33] VITALS: TEMP 97.2
[2023-05-23 02:42] LABS: BASOPHIL % 0.4 % (0.0-0.4); Basophil (Absolute #) 0.04 x10^3/uL (0-0.4); Eosinophil % 0.9 % (0.00-5.0); Eosinophil (Absolute #) 0.09 x10^3/uL (0-0.5); Hematocrit 34.8 % (35-47); Hemoglobin 10.3 g/dL (12.0-16.0); IMMATURE GRAN # 0.03 x10^3u/L (0.00-0.03); IMMATURE GRAN % 0.3 % (0.00-0.4); Lymphocyte (Absolute #) 2.42 x10^3/uL (1.0-4.6); Lymphocytes % 25.4 % (24.0-44.0); Mean Cell Volume 78.6 fL (78-100); Mean Corpuscular Hemoglobin 23.3 pg (26-32); Mean Corpuscular Hgb Concent. 29.6 g/dL (32-36); Mean Platelet Volume 9.8 fL (7.5-11.0); Monocyte (Absolute #) 0.66 x10^3/uL (0.0-1.3); Monocytes % 6.9 % (0.0-12.0); Neutrophil % 66.1 % (36.0-66.0); Platelet Count 464 x10^3/uL (150-450); Red Blood Count 4.43 x10^6/uL (4.1-5.4); Red Cell Distribution Width 18.7 % (11.5-14.0); White Blood Count 9.5 x10^3/uL (4.0-10.5)
[2023-05-23 02:46] LABS: HCG URINE TEST NEGATIVE (NEGATIVE)
[2023-05-23 02:49] LABS: Appearance Clear (Clear); Bacteria None Seen /HPF (None Seen); Bilirubin Negative (Negative); Blood Negative (Negative); Epithelial Cells None Seen /HPF (None Seen); Glucose, Urine Negative (Negative); Hyaline Casts NONE SEEN /LPF (0-2); Ketones Trace (Negative); Leukocyte Esterase Negative (Negative); Nitrite Negative (Negative); Ph 6.5 (4.6-8.0); Protein,Urine Dip Negative (Negative); RBC 0-2 /HPF (0-5); Specific Gravity <=1.005 (1.005-1.030); Urobilinogen 0.2 mg/dL (0.2); WBC 0-2 /HPF (0-5)
[2023-05-23 02:56] LABS: ADD URINE CULTURE? NO (NO)
[2023-05-23 02:57] LABS: ALBUMIN 4.8 g/dL (3.5-5.0); ANION GAP 13.2 MEQ/L (5-15); BILIRUBIN,TOTAL 0.5 mg/dL (0.2-1.3); Calcium 9.4 mg/dL (8.4-10.2); Creatinine 1 0.73 mg/dL (0.52-1.04); EST GLOMERULAR FILTRATION RATE 115.5 ML/MIN; Potassium 3.2 mmol/L (3.5-5.1); Total Protein 8.1 g/dL (6.3-8.2)
[2023-05-23 03:00] LABS: Amphetamine,Urine NEGATIVE (NEGATIVE); Barbiturate,Urine NEGATIVE (NEGATIVE); Benzodiazepine,Urine NEGATIVE (NEGATIVE); Cocaine,Urine NEGATIVE (NEGATIVE); Methadone,Urine NEGATIVE (NEGATIVE); Opiate,Urine NEGATIVE (NEGATIVE); PCP,Urine NEGATIVE (NEGATIVE); THC,Urine POSITIVE (NEGATIVE)
--- NOTE | 2023-05-23 03:09 | ERPHSYRPT ---
- History of Present Illness Time Seen by Provider: 05/23/23 02:30 Source: patient Exam Limitations: no limitations Patient Subjective Stated Complaint: pt states that last night at approx 2330 she smoked marijuana to help her fall asleep (same type/ supplier as usually us es) and that she was a daily drinker of 3-4 drinks/ day of anything with >14%PEYTON but hasn't had a drink in one week. reports history of anxiety and states this pain she is feeling could just be anxiety or the marijuana or the 4 energy drinks she drank between 2300 and 0115. at 0115 she started experiencing left upper chest pain that radiates to left neck and is accompanied by chills. pt was at rest attempting to fall asleep. Triage Nursing Assessment: pt ambulated into room 4 independently with a slow steady gait after standing on scales for weight acquisition and to bathroom to provide urine specimen for lab testing. pt is alert and oriented times three, able to speak in complete sentences, able to move all extremities, and with resp even and unlabored. heart sounds present and regular. bilat radial and pedal pulses palpable. bilat anterior and posterior lung sounds clear throughout. no jvd or edema noted. pt denies vincent, lightheadedness, dizziness, sob, difficulty breathing, numbness, tingling, n/v, diarrhea, change in appetite, difficulty with urinary or bowel elimination. Physician History: Patient is a 28-year-old female presents to the emergency department for evaluation of substernal chest pain. Patient states symptoms started just prior to arrival. Patient states that she smoked marijuana 330 to help her sleep. Patient had 4 energy drinks prior to going to bed. Patient states that she had a 4 energy drinks to help her cope with her alcohol detox. Patient normally drinks alcohol daily. However she has not had alcohol in 1 week due to self detox. Patient has been compensating with energy drinks instead. So to help her sleep she smokes marijuana. No active chest pain at this time. Symptoms were mild to moderate in intensity when present. No radiation. No nausea vomiting or diaphoresis. Patient denies cardiac history. She voices no other complaints or concerns at this time. Portions of this note were created with voice recognition technology. There may be grammatical, spelling, punctuation or sound alike errors Timing/Duration: today Severity: moderate Modifying Factors: Improves With: nothing Associated Symptoms: denies symptoms Allergies/Adverse Reactions: No Known Drug Allergies Allergy (Verified 05/23/23 02:15) Home Medications: No Reportable Medications [No Reported Medications] 02/26/23 [History] Hx Tetanus, Diphtheria Vaccination/Date Given: Yes Hx Influenza Vaccination/Date Given: Yes Hx Pneumococcal Vaccination/Date Given: No Immunizations Up to Date: No Travel Risk - International Travel Have you traveled outside of the country in past 3 weeks: No - Coronavirus Screening Are you exhibiting any of the following symptoms?: No Close contact with a COVID-19 positive Pt in past 14-21 Days: No - Vaccine Status Have you recieved a Covid-19 vaccination: No Manager Relocation: Moderna - Vaccination Dates Date of 2cond Vaccination (if applicable): 05/05/20 - Review of Systems Constitutional: No Symptoms, No Fever, No Chills Eyes: No Symptoms Ears, Nose, & Throat: No Symptoms Respiratory: No Symptoms, No Cough, No Dyspnea Cardiac: No Symptoms, No Chest Pain, No Edema, No Syncope Abdominal/Gastrointestinal: No Symptoms, No Abdominal Pain, No Nausea, No Vomiting, No Diarrhea Genitourinary Symptoms: No Symptoms, No Dysuria Musculoskeletal: No Symptoms, No Back Pain, No Neck Pain Skin: No Symptoms, No Rash Neurological: No Symptoms, No Dizziness, No Focal Weakness, No Sensory Changes Psychological: No Symptoms Endocrine: No Symptoms Hematologic/Lymphatic: No Symptoms Immunological/Allergic: No Symptoms All Other Systems: Reviewed and Negative - Past Medical History Pertinent Past Medical History: Yes Neurological History: Migraines ENT History: No Pertinent History Cardiac History: No Pertinent History Respiratory History: No Pertinent History Endocrine Medical History: Hypothyroidism Musculoskeletal History: No Pertinent History GI Medical History: No Pertinent History History: No Pertinent History Psycho-Social History: Anxiety, Depression, Other Female Reproductive Disorders: Menstrual Problems, Other Other Medical History: sleep problems, alopecia totalis - Past Surgical History Past Surgical History: Yes Neuro Surgical History: No Pertinent History Cardiac: No Pertinent History Respiratory: No Pertinent History Gastrointestinal: No Pertinent History Genitourinary: No Pertinent History Musculoskeletal: No Pertinent History Female Surgical History: Dilation & Curettage Other Surgical History: tonils - Social History Smoking Status: Former smoker How long have you smoked: 8 year Exposure to second hand smoke: Yes Alcohol Use: Socially Drug Use: marijuana Patient Lives Alone: No Significant Family History: no pertinent family hx - Female History Hx Last Menstrual Period: 05/15/23 Hx Now: No - Nursing Vital Signs Nursing Vital Signs: Initial Vital Signs Temperature 97.2 F 05/23/23 02:19 Pulse Rate 104 H 05/23/23 02:19 Respiratory Rate 24 05/23/23 02:19 Blood Pressure 132/86 05/23/23 02:19 O2 Sat by Pulse Oximetry 100 05/23/23 02:19 Pain Scale Pain Intensity 6 - Physical Exam General Appearance: no apparent distress, alert Eye Exam: PERRL/EOMI, eyes nml inspection Ears, Nose, Throat Exam: normal ENT inspection, TMs normal, pharynx normal, moist mucous membranes Neck Exam: normal inspection, non-tender, supple, full range of motion Respiratory Exam: normal breath sounds, lungs clear, No respiratory distress Cardiovascular Exam: regular rate/rhythm, normal heart sounds, normal peripheral pulses Gastrointestinal/Abdomen Exam: soft, normal bowel sounds, No tenderness, No mass Back Exam: normal inspection, normal range of motion, No CVA tenderness, No vertebral tenderness Extremity Exam: normal inspection, normal range of motion, pelvis stable Neurologic Exam: alert, oriented x 3, cooperative, normal mood/affect, nml cerebellar function, nml station & gait, sensation nml, No motor deficits Skin Exam: normal color, warm, dry, No rash Lymphatic Exam: No adenopathy SpO2 Interpretation: normal SpO2: 99 O2 Delivery: Room Air - Course Nursing assessment & vital signs reviewed: Yes EKG Interpreted by Me: RATE, Sinus Tach, NORMAL AXIS, NORMAL INTERVALS - Radiology Exams Chest X-ray Interpretation: Teleradiologist Report (No acute findings) Ordered Tests: Active Orders 24 hr Category Date Time Status Youth Nutritional Monitor STAT Care 05/23/23 02:19 Active EKG-ER Only STAT Care 05/23/23 02:19 Active IV Insertion STAT Care 05/23/23 02:19 Active Pulse Oximetry (ED) STAT Care 05/23/23 02:19 Active CHEST 1 VIEW (PORTABLE) Stat Exams 05/23/23 03:04 Taken CBC W DIFF Stat Lab 05/23/23 02:15 Completed CMP Stat Lab 05/23/23 02:15 Completed D-DIMER QUANTITATIVE Stat Lab 05/23/23 02:15 Completed HCG QUALITATIVE, URINE Stat Lab 05/23/23 02:15 Completed NT PRO BNPII Stat Lab 05/23/23 02:15 Completed TROPONIN Q4H Lab 05/23/23 02:15 Completed TROPONIN Q4H Lab 05/23/23 05:14 Completed TROPONIN Q4H Lab 05/23/23 10:30 Ordered UA W/RFX UR CULTURE Stat Lab 05/23/23 02:15 Completed Urine Triage Profile Stat Lab 05/23/23 02:15 Completed Medication Summary Discontinued Medications Generic Name Dose Route Start Last Admin Trade Name Anabell PRN Reason Stop Dose Admin Potassium Chloride 40 meq 05/23/23 05:10 05/23/23 05:33 Potassium Chloride Tab 10 Meq Tab PO 05/23/23 05:11 40 meq STAT ONE Administration Potassium Chloride Confirm 05/23/23 05:31 Potassium Chloride Tab 10 Meq Tab Administered 05/23/23 05:32 Dose 40 meq .ROUTE [employer] ONE Lab/Rad Data: Laboratory Result Diagrams 05/23/23 02:15 05/23/23 02:15 Laboratory Results 05/23/23 05/23/23 05/23/23 Range/Units 05:14 02:15 02:15 WBC (4.0-10.5) x10^3/uL RBC (4.1-5.4) x10^6/uL Hgb (12.0-16.0) g/dL Hct (35-47) % MCV (78-100) fL MCH (26-32) pg MCHC (32-36) g/dL RDW (11.5-14.0) % Plt Count (150-450) x10^3/uL MPV (7.5-11.0) fL Gran % (36.0-66.0) % Immature Gran % (Auto) (0.00-0.4) % Nucleat RBC Rel Count (0.00-0.1) % Eos # (Auto) (0-0.5) x10^3/uL Immature Gran # (Auto) (0.00-0.03) x10^3u/L Absolute Lymphs (auto) (1.0-4.6) x10^3/uL Absolute Monos (auto) (0.0-1.3) x10^3/uL Absolute Nucleated RBC (0.00-0.01) x10^3u/L Lymphocytes % (24.0-44.0) % Monocytes % (0.0-12.0) % Eosinophils % (0.00-5.0) % Basophils % (0.0-0.4) % Absolute Granulocytes (1.4-6.9) x10^3/uL Basophils # (0-0.4) x10^3/uL D-Dimer (0.0-0.50) mg/L Sodium (137-145) mmol/L Potassium (3.5-5.1) mmol/L Chloride (98-107) mmol/L Carbon Dioxide (22-30) mmol/L Anion Gap (5-15) MEQ/L BUN (7-17) mg/dL Creatinine (0.52-1.04) mg/dL Estimated GFR ML/MIN Glucose (74-106) mg/dL Calcium (8.4-10.2) mg/dL Total Bilirubin (0.2-1.3) mg/dL AST (14-36) U/L ALT (0-35) U/L Alkaline Phosphatase (38-126) U/L Troponin I < 0.012 (0.000-0.034) ng/mL NT-Pro-B Natriuret Pep (<300) pg/mL Serum Total Protein (6.3-8.2) g/dL Albumin (3.5-5.0) g/dL Urine Color (Yellow) Urine Appearance (Clear) Urine pH (4.6-8.0) Ur Specific Pearl (1.005-1.030) Urine Protein (Negative) Urine Glucose (UA) (Negative) mg/dL Urine Ketones (Negative) Urine Blood (Negative) Urine Nitrite (Negative) Urine Bilirubin (Negative) Urine Urobilinogen (0.2) mg/dL Ur Leukocyte Esterase (Negative) U Hyaline Cast (Auto) (0-2) /LPF Urine Microscopic RBC (0-5) /HPF Urine Microscopic WBC (0-5) /HPF Ur Epithelial Cells (None Seen) /HPF Urine Bacteria (None Seen) /HPF Urine Culture Reflexed (NO) Urine HCG, Qual NEGATIVE (NEGATIVE) Urine Opiates Level NEGATIVE (NEGATIVE) Ur Methadone NEGATIVE (NEGATIVE) Urine Barbiturates NEGATIVE (NEGATIVE) Ur Phencyclidine (PCP) NEGATIVE (NEGATIVE) Urine Amphetamine NEGATIVE (NEGATIVE) U Benzodiazepine Level NEGATIVE (NEGATIVE) Urine Cocaine NEGATIVE (NEGATIVE) Urine Marijuana (THC) POSITIVE A (NEGATIVE) 05/23/23 05/23/23 05/23/23 Range/Units 02:15 02:15 02:15 WBC (4.0-10.5) x10^3/uL RBC (4.1-5.4) x10^6/uL Hgb (12.0-16.0) g/dL Hct (35-47) % MCV (78-100) fL MCH (26-32) pg MCHC (32-36) g/dL RDW (11.5-14.0) % Plt Count (150-450) x10^3/uL MPV (7.5-11.0) fL Gran % (36.0-66.0) % Immature Gran % (Auto) (0.00-0.4) % Nucleat RBC Rel Count (0.00-0.1) % Eos # (Auto) (0-0.5) x10^3/uL Immature Gran # (Auto) (0.00-0.03) x10^3u/L Absolute Lymphs (auto) (1.0-4.6) x10^3/uL Absolute Monos (auto) (0.0-1.3) x10^3/uL Absolute Nucleated RBC (0.00-0.01) x10^3u/L Lymphocytes % (24.0-44.0) % Monocytes % (0.0-12.0) % Eosinophils % (0.00-5.0) % Basophils % (0.0-0.4) % Absolute Granulocytes (1.4-6.9) x10^3/uL Basophils # (0-0.4) x10^3/uL D-Dimer 0.28 (0.0-0.50) mg/L Sodium (137-145) mmol/L Potassium (3.5-5.1) mmol/L Chloride (98-107) mmol/L Carbon Dioxide (22-30) mmol/L Anion Gap (5-15) MEQ/L BUN (7-17) mg/dL Creatinine (0.52-1.04) mg/dL Estimated GFR ML/MIN Glucose (74-106) mg/dL Calcium (8.4-10.2) mg/dL Total Bilirubin (0.2-1.3) mg/dL AST (14-36) U/L ALT (0-35) U/L Alkaline Phosphatase (38-126) U/L Troponin I < 0.012 (0.000-0.034) ng/mL NT-Pro-B Natriuret Pep < 20.0 (<300) pg/mL Serum Total Protein (6.3-8.2) g/dL Albumin (3.5-5.0) g/dL Urine Color (Yellow) Urine Appearance (Clear) Urine pH (4.6-8.0) Ur Specific Pearl (1.005-1.030) Urine Protein (Negative) Urine Glucose (UA) (Negative) mg/dL Urine Ketones (Negative) Urine Blood (Negative) Urine Nitrite (Negative) Urine Bilirubin (Negative) Urine Urobilinogen (0.2) mg/dL Ur Leukocyte Esterase (Negative) U Hyaline Cast (Auto) (0-2) /LPF Urine Microscopic RBC (0-5) /HPF Urine Microscopic WBC (0-5) /HPF Ur Epithelial Cells (None Seen) /HPF Urine Bacteria (None Seen) /HPF Urine Culture Reflexed (NO) Urine HCG, Qual (NEGATIVE) Urine Opiates Level (NEGATIVE) Ur Methadone (NEGATIVE) Urine Barbiturates (NEGATIVE) Ur Phencyclidine (PCP) (NEGATIVE) Urine Amphetamine (NEGATIVE) U Benzodiazepine Level (NEGATIVE) Urine Cocaine (NEGATIVE) Urine Marijuana (THC) (NEGATIVE) 05/23/23 05/23/23 05/23/23 Range/Units 02:15 02:15 02:15 WBC 9.5 (4.0-10.5) x10^3/uL RBC 4.43 (4.1-5.4) x10^6/uL Hgb 10.3 L (12.0-16.0) g/dL Hct 34.8 L (35-47) % MCV 78.6 (78-100) fL MCH 23.3 L (26-32) pg MCHC 29.6 L (32-36) g/dL RDW 18.7 H (11.5-14.0) % Plt Count 464 H (150-450) x10^3/uL MPV 9.8 (7.5-11.0) fL Gran % 66.1 H (36.0-66.0) % Immature Gran % (Auto) 0.3 (0.00-0.4) % Nucleat RBC Rel Count 0.0 (0.00-0.1) % Eos # (Auto) 0.09 (0-0.5) x10^3/uL Immature Gran # (Auto) 0.03 (0.00-0.03) x10^3u/L Absolute Lymphs (auto) 2.42 (1.0-4.6) x10^3/uL Absolute Monos (auto) 0.66 (0.0-1.3) x10^3/uL Absolute Nucleated RBC 0.00 (0.00-0.01) x10^3u/L Lymphocytes % 25.4 (24.0-44.0) % Monocytes % 6.9 (0.0-12.0) % Eosinophils % 0.9 (0.00-5.0) % Basophils % 0.4 (0.0-0.4) % Absolute Granulocytes 6.30 (1.4-6.9) x10^3/uL Basophils # 0.04 (0-0.4) x10^3/uL D-Dimer (0.0-0.50) mg/L Sodium 137 (137-145) mmol/L Potassium 3.2 L (3.5-5.1) mmol/L Chloride 104 (98-107) mmol/L Carbon Dioxide 23 (22-30) mmol/L Anion Gap 13.2 (5-15) MEQ/L BUN 11 (7-17) mg/dL Creatinine 0.73 (0.52-1.04) mg/dL Estimated GFR 115.5 ML/MIN Glucose 146 H (74-106) mg/dL Calcium 9.4 (8.4-10.2) mg/dL Total Bilirubin 0.50 (0.2-1.3) mg/dL AST 67 H (14-36) U/L ALT 103 H (0-35) U/L Alkaline Phosphatase 85 (38-126) U/L Troponin I (0.000-0.034) ng/mL NT-Pro-B Natriuret Pep (<300) pg/mL Serum Total Protein 8.1 (6.3-8.2) g/dL Albumin 4.8 (3.5-5.0) g/dL Urine Color Yellow (Yellow) Urine Appearance Clear (Clear) Urine pH 6.5 (4.6-8.0) Ur Specific Pearl <=1.005 (1.005-1.030) Urine Protein Negative (Negative) Urine Glucose (UA) Negative (Negative) mg/dL Urine Ketones Trace A (Negative) Urine Blood Negative (Negative) Urine Nitrite Negative (Negative) Urine Bilirubin Negative (Negative) Urine Urobilinogen 0.2 (0.2) mg/dL Ur Leukocyte Esterase Negative (Negative) U Hyaline Cast (Auto) NONE SEEN (0-2) /LPF Urine Microscopic RBC 0-2 (0-5) /HPF Urine Microscopic WBC 0-2 (0-5) /HPF Ur Epithelial Cells None Seen (None Seen) /HPF Urine Bacteria None Seen (None Seen) /HPF Urine Culture Reflexed NO (NO) Urine HCG, Qual (NEGATIVE) Urine Opiates Level (NEGATIVE) Ur Methadone (NEGATIVE) Urine Barbiturates (NEGATIVE) Ur Phencyclidine (PCP) (NEGATIVE) Urine Amphetamine (NEGATIVE) U Benzodiazepine Level (NEGATIVE) Urine Cocaine (NEGATIVE) Urine Marijuana (THC) (NEGATIVE) - Progress Progress: improved Progress Note: Patient is a 28-year-old female presents to our ED for evaluation of substernal chest pain started just prior to arrival. Physical exam unremarkable. Patient states that she is currently attempting to quit drinking alcohol. Patient is replacing her alcoholic beverages with energy drinks. However this affects her sleeping pattern. The patient smokes marijuana to sleep. Pain well localized. No radiation. No active chest pain at this time. CBC reveals normocytic anemia of 10.3. Potassium 3.2. Patient received oral potassium replacement 40 mEq. There is a thrombocytosis of 464. Marijuana observed on her talk screen. Patient reassessed. Patient remained asymptomatic. Vital stable. She voices no other complaints or concerns at this time. Portions of this note were created with voice recognition technology. There may be grammatical, spelling, punctuation or sound alike errors Complexity problem addressed is moderate acute complicated No critical care time. Complexity of data reviewed and analyzed is moderate. Test ordered test reviewed results analyzed and correlated clinically with history and physical exam. Risk of complication and or risk morbidity/mortality of patient management is low Plan of care discussed with patient. Patient agrees to follow-up with primary care doctor within 48 hours for evaluation. Vital stable. Plan of care established for shared decision making. No social determinants of health present impede follow-up. Portions of this note were created with voice recognition technology. There may be grammatical, spelling, punctuation or sound alike errors Counseled pt/family regarding: lab results, diagnosis, need for follow-up, rad results - Departure Departure Disposition: Home Clinical Impression: Hypokalemia, Normocytic anemia, Thrombocytosis, Marijuana use Condition: Stable Critical Care Time: No Referrals: DOCTOR,NO FAMILY [Primary Care Provider] - Follow up/PCP as directed CRISTY REAVES DO [ACTIVE STAFF] - Follow up/PCP as directed Additional Instructions: Discharge/Care Plan MIKE BENSON was seen on 05/23/23 in the Emergency Room. The patient was counseled regarding Diagnosis,Lab results, Imaging studies, need for follow up and when to return to the Emergency Room. Prescriptions given: Discharge Note I have spoken with the patient and/or caregivers. I have explained the patient's condition, diagnosis and treatment plan based on the information available to me at this time. I have answered the patient's and/or caregiver's questions and addressed any concerns. The patient and/or caregivers have as good understanding of the patient's diagnosis, condition and treatment plan as can be expected at this point. The vital signs have been stable. The patient's condition is stable and appropriate for discharge from the emergency department. The patient will pursue further outpatient evaluation with the primary care physician or other designated or consulting physician as outlined in the discharge instructions. The patient and/or caregivers are agreeable to this plan of care and follow-up instructions have been explained in detail. The patient and/or caregivers have received these instruction. The patient/and or caregivers are aware that any significant change in condition or worsening of symptoms should prompt an immediate return to this or the closest emergency department or call 911.
[2023-05-23 04:41] VITALS: RESP 27
[2023-05-23] MEDS ORDERED: Klor Con ONE (05:31)
[2023-05-23] MEDS: Klor Con PO ONE (05:33)
[2023-05-23 05:38] VITALS: BP 114/67; PULSE 82
[2023-05-23 05:52] VITALS: O2SAT 99
--- NOTE | 2023-05-23 08:52 | XRAY ---
Indication: Chest pain. Comparison: November 27, 2016 Portable chest again demonstrates normal heart, lungs, and bony thorax.
== END 2023-05-23 06:00 | disposition home or self-care (01) ==
LOC: ED 02:12
DX: E87.6 Hypokalemia (principal); D64.9 Anemia, unspecified; D75.839 Thrombocytosis, unspecified; F12.90 Cannabis use, unspecified, uncomplicated; R07.9 Chest pain, unspecified
CPT/HCPCS: 36000; 36415; 71045; 80053; 80307; 81001; 81025; 83880; 84484; 85025; 85379; 93005; 93041; 94760; 99284; A9270-GY

== ENCOUNTER 2023-11-02 19:47 | Emergency (ER) | payer OTHER ==
--- NOTE | 2023-11-02 19:55 | ERPHSYRPT ---
- History of Present Illness Time Seen by Provider: 11/02/23 19:54 Source: patient, family Exam Limitations: no limitations Physician History: This is a 28-year-old obese white female patient who presents with 4-day history of cough, nasal congestion, sore throat, headache and bodyaches. Patient has not knowingly been exposed to individuals with similar symptoms. Patient has a history of alopecia totalis, hypothyroidism, anxiety and migraine headaches. She denies chest pain. She denies shortness of breath. Cough Quality/Degree: mild, dry cough Possible Cause: no prior episodes Modifying Factors: Improves With: coughing Associated Symptoms: cough, headache, muscle aches, sore throat Allergies/Adverse Reactions: No Known Drug Allergies Allergy (Verified 11/02/23 19:52) Hx Tetanus, Diphtheria Vaccination/Date Given: Yes Hx Influenza Vaccination/Date Given: Yes Hx Pneumococcal Vaccination/Date Given: No Travel Risk - International Travel Have you traveled outside of the country in past 3 weeks: No - Emerging Infectious Disease Are you exhibiting symptoms associated with any current EIDs: Yes Symptoms: Cough: New Onset, Headaches/Body Aches/, Loss of taste or smell - Review of Systems Constitutional: No Symptoms Eyes: No Symptoms Ears, Nose, & Throat: Nose Congestion Respiratory: Cough Cardiac: No Symptoms Abdominal/Gastrointestinal: No Symptoms Genitourinary Symptoms: No Symptoms Musculoskeletal: Arthralgias, Myalgias Skin: No Symptoms Neurological: No Symptoms Psychological: No Symptoms Endocrine: No Symptoms Hematologic/Lymphatic: No Symptoms Immunological/Allergic: No Symptoms All Other Systems: Reviewed and Negative - Past Medical History Pertinent Past Medical History: Yes Neurological History: Migraines ENT History: No Pertinent History Cardiac History: No Pertinent History Respiratory History: No Pertinent History Endocrine Medical History: Hypothyroidism Musculoskeletal History: No Pertinent History GI Medical History: No Pertinent History History: No Pertinent History Psycho-Social History: Anxiety, Depression, Other Female Reproductive Disorders: Menstrual Problems, Other Other Medical History: sleep problems, alopecia totalis - Past Surgical History Past Surgical History: Yes Neuro Surgical History: No Pertinent History Cardiac: No Pertinent History Respiratory: No Pertinent History Gastrointestinal: No Pertinent History Genitourinary: No Pertinent History Musculoskeletal: No Pertinent History Female Surgical History: Dilation & Curettage Other Surgical History: tonils Significant Family History: no pertinent family hx - Social History Smoking Status: Former smoker How long have you smoked: 8 year Exposure to second hand smoke: Yes Alcohol Use: Socially Drug Use: marijuana Patient Lives Alone: No - Nursing Vital Signs Nursing Vital Signs: Initial Vital Signs Temperature 97.5 F 11/02/23 19:54 Pulse Rate 92 H 11/02/23 19:54 Respiratory Rate 18 11/02/23 19:54 Blood Pressure 159/82 11/02/23 19:54 O2 Sat by Pulse Oximetry 98 11/02/23 19:54 Pain Scale Pain Intensity 5 - Physical Exam General Appearance: no apparent distress, alert, obese Eye Exam: PERRL/EOMI, eyes nml inspection Ears, Nose, Throat Exam: normal ENT inspection, moist mucous membranes Neck Exam: normal inspection, non-tender, supple, full range of motion Respiratory Exam: normal breath sounds, lungs clear, airway intact, No chest tenderness, No respiratory distress Cardiovascular Exam: regular rate/rhythm, normal heart sounds, normal peripheral pulses Gastrointestinal/Abdomen Exam: soft, normal bowel sounds, No tenderness Pelvic Exam: not done Rectal Exam: not done Back Exam: normal inspection, normal range of motion, No CVA tenderness, No vertebral tenderness Extremity Exam: normal inspection, normal range of motion, pelvis stable Neurologic Exam: alert, oriented x 3, cooperative, supervisor coke handling II-XII nml as tested, normal mood/affect, nml cerebellar function, nml station & gait, sensation nml Skin Exam: normal color, warm, dry Lymphatic Exam: No adenopathy SpO2 Interpretation: normal O2 Delivery: Room Air - Course Nursing assessment & vital signs reviewed: Yes Ordered Tests: Medication Summary Discontinued Medications Generic Name Dose Route Start Last Admin Trade Name Freq PRN Reason Stop Dose Admin Hydrocodone Bitart/Acetaminophen 10 ml 11/02/23 21:17 Hydrocodone/Acetaminophen 5 Ml Udcup PO 11/02/23 21:18 STAT STA Lab/Rad Data: Laboratory Results 11/02/23 Range/Units 20:15 Influenza Type A Ag NEGATIVE (NEGATIVE) Influenza Type B Ag NEGATIVE (NEGATIVE) RSV (PCR) NEGATIVE (NEGATIVE) SARS-CoV-2 (PCR) POSITIVE A (NEGATIVE) Group A Strep Antibody NOT DETECTED (NEGATIVE) - Progress Progress: improved, re-examined Air Movement: good Progress Note: 11/02/23 20:11 Medical decision making and the assignment of low complexity to this patient's medical issue today is based on review of the patient's past medical history, review of patient's medication list, review of patient drug allergy list, history present illness and physical findings on examination. The workup in this patient includes viral swabs and group A strep swab. Differential diagnosis includes but is not limited to pharyngitis, viral illness 11/02/23 21:18 I interpreted the patient's laboratory data results. Patient tested positive for COVID-19 infection. Blood Culture(s) Obtained: No Antibiotics given: No Counseled pt/family regarding: lab results, diagnosis, need for follow-up Medical Desision Making - Independent Historian Additional History obtained from: Spouse - Diagnostic Testing Diagnostic test were ordered, analyzed, and reviewed by me: Yes - Risk of complications The pt has a mod risk of morbidity or mortality based on: Need for prescription drug management - Departure Departure Disposition: Home Clinical Impression: COVID-19 virus infection, Viral bronchitis, Viral pharyngitis Condition: Stable Critical Care Time: No Referrals: DOCTOR,NO FAMILY [Primary Care Provider] - Follow up/PCP as directed Additional Instructions: Drink plenty of cool fluids. Take your steroids and other medication as prescribed. May use Tylenol and ibuprofen for pain and fever control. Quarantine yourself for 5 to 7 days. Prescriptions: Prednisone 10 mg [Deltasone 10 mg] 10 mg PO TID #12 tablet
[2023-11-02 19:59] VITALS: RESP 18; TEMP 97.5
[2023-11-02 20:57] LABS: INFLUENZA A NEGATIVE (NEGATIVE); INFLUENZA B NEGATIVE (NEGATIVE); RESPIRATORY SYNCTIAL VIRUS NEGATIVE (NEGATIVE)
[2023-11-02 20:59] LABS: SARS-CoV-2 Xpert Express POSITIVE (NEGATIVE)
[2023-11-02 21:14] VITALS: BP 155/66
[2023-11-02 21:14] LABS: Group A Strep NOT DETECTED (NEGATIVE)
[2023-11-02] MEDS: HYDROCODONE-ACETAMIN 2.5-108/5 ML SOLUTION PO STA (21:19)
[2023-11-02] MEDS ORDERED: HYDROCODONE-ACETAMIN 2.5-108/5 ML SOLUTION ONE (21:20)
[2023-11-02 21:31] VITALS: PULSE 84; O2SAT 98
== END 2023-11-02 21:31 | disposition home or self-care (01) ==
LOC: ED 19:47
DX: U07.1 COVID-19 (principal); J20.8 Acute bronchitis due to other specified organisms; J02.8 Acute pharyngitis due to other specified organisms; R05.1 Acute cough; R09.81 Nasal congestion; R51.9 Headache, unspecified; M79.10 Myalgia, unspecified site; Z79.52 Long term (current) use of systemic steroids
CPT/HCPCS: 0241U; 87651; 99283; A9270-GY

== ENCOUNTER 2023-12-28 19:28 | Emergency (ER) | payer OTHER ==
--- NOTE | 2023-12-28 19:40 | ERPHSYRPT ---
- History of Present Illness Time Seen by Provider: 12/28/23 19:40 Source: patient Exam Limitations: no limitations Physician History: This is a morbidly obese 28-year-old white female patient of Dr. Hoyt who presents by private vehicle. She cut her left index finger with a knife prior to arrival. She was trying to cut a wooden a[place]ru and it slipped. Patient's tetanus status is up-to-date per her report. Patient has a history of anxiety, depression, alopecia totalis, migraine headaches and hypothyroidism. Timing/Duration: today Quality: burning Severity: mild Location: hands (Left hand index finger) Associated Symptoms: denies symptoms Allergies/Adverse Reactions: No Known Drug Allergies Allergy (Verified 12/28/23 20:25) Home Medications: Levothyroxine Sodium 25 mcg PO DAILY 12/28/23 [History] Metformin HCl [Metformin HCl ER] 500 mg PO BID 12/28/23 [History] Phentermine HCl 37.5 mg PO DAILY 12/28/23 [History] Hx Tetanus, Diphtheria Vaccination/Date Given: Yes Hx Influenza Vaccination/Date Given: Yes Hx Pneumococcal Vaccination/Date Given: No Travel Risk - International Travel Have you traveled outside of the country in past 3 weeks: No - Emerging Infectious Disease Are you exhibiting symptoms associated with any current EIDs: Yes Symptoms: Cough: New Onset, Headaches/Body Aches/, Loss of taste or smell - Review of Systems Constitutional: No Symptoms Eyes: No Symptoms Ears, Nose, & Throat: No Symptoms Respiratory: No Symptoms Cardiac: No Symptoms Abdominal/Gastrointestinal: No Symptoms Genitourinary Symptoms: No Symptoms Musculoskeletal: No Symptoms Skin: No Symptoms, Other (2 cm skin laceration dorsal aspect left index finger) Neurological: No Symptoms Psychological: No Symptoms Endocrine: No Symptoms Hematologic/Lymphatic: No Symptoms Immunological/Allergic: No Symptoms All Other Systems: Reviewed and Negative - Past Medical History Pertinent Past Medical History: Yes Neurological History: Migraines ENT History: No Pertinent History Cardiac History: No Pertinent History Respiratory History: No Pertinent History Endocrine Medical History: Hypothyroidism Musculoskeletal History: No Pertinent History GI Medical History: No Pertinent History History: No Pertinent History Psycho-Social History: Anxiety, Depression, Other Female Reproductive Disorders: Menstrual Problems, Other Other Medical History: sleep problems, alopecia totalis - Past Surgical History Past Surgical History: Yes Neuro Surgical History: No Pertinent History Cardiac: No Pertinent History Respiratory: No Pertinent History Gastrointestinal: No Pertinent History Genitourinary: No Pertinent History Musculoskeletal: No Pertinent History Female Surgical History: Dilation & Curettage Other Surgical History: tonils Significant Family History: no pertinent family hx - Female History Hx Last Menstrual Period: 10/30/23 - Social History Smoking Status: Former smoker How long have you smoked: 8 year Exposure to second hand smoke: Yes Alcohol Use: Socially Drug Use: marijuana Patient Lives Alone: No - Social Determinants of Health Will the patient participate in the screening: Yes Do you worry about a steady place to live?: No In the past 12 months,have you had to go without utilities?: No Transportation Issues: No Has anyone in your support network made you feel unsafe?: No Have you or anyone in your house had to go without enough: No - Nursing Vital Signs Nursing Vital Signs: Initial Vital Signs Temperature 97.4 F 12/28/23 20:28 Pulse Rate 89 12/28/23 20:28 Respiratory Rate 18 12/28/23 20:28 Blood Pressure 143/86 12/28/23 20:28 O2 Sat by Pulse Oximetry 97 12/28/23 20:28 Pain Scale Pain Intensity 6 - Physical Exam General Appearance: no apparent distress, alert, anxiety, obese Eye Exam: PERRL/EOMI, eyes nml inspection Ears, Nose, Throat Exam: normal ENT inspection, moist mucous membranes Neck Exam: normal inspection, non-tender, supple, full range of motion Respiratory Exam: airway intact, No chest tenderness, No respiratory distress Gastrointestinal/Abdomen Exam: No tenderness Pelvic Exam: not done Rectal Exam: not done Back Exam: normal inspection, normal range of motion, No CVA tenderness, No vertebral tenderness Extremity Exam: normal range of motion, lacerations (2 cm skin laceration dorsal aspect left index finger with approximately 1 cm of superficial abrasion present), other (Neurovascularly intact. Tendon function left index finger intact) Neurologic Exam: alert, oriented x 3, cooperative, hand patcher II-XII nml as tested, sensation nml Skin Exam: normal color, warm, dry, laceration (See above extremity exam section) Lymphatic Exam: No adenopathy SpO2 Interpretation: normal O2 Delivery: Room Air Procedures - Laceration/Wound Repair Left Dorsal Finger Time of Procedure: 20:45 Wound Location: Left, hand (Dorsal aspect left index finger) Wound Length (cm): 2 Wound's Depth, Shape: superficial, linear, flap Wound Explored: clean (Wound is clean and it was explored to the base in a bloodless field and no foreign body noted. Tendon function intact) Irrigated: Yes Hibiclens Prep: Yes Wound Repaired With: Steri-strips, Dermabond Layer Closure?: No - Course Nursing assessment & vital signs reviewed: Yes - Progress Progress: improved, pain not gone completely, re-examined Progress Note: 12/28/23 21:00 My medical decision making of the assignment of low complexity to this patient's medical issue today is based on review of the patient's past medical history, review the patient's medication list, reviewed patient drug allergy list, history present illness and physical findings on examination. The workup of this patient does not require radiographic or laboratory studies. Counseled pt/family regarding: diagnosis Medical Desision Making - Diagnostic Testing Diagnostic test were ordered, analyzed, and reviewed by me: No - Risk of complications Minimal Risk: Minimal risk of morbidity - Departure Departure Disposition: Home Clinical Impression: Finger laceration Condition: Stable Critical Care Time: No Referrals: ZOYA HOYT [Primary Care Provider] - Follow up/PCP as directed Additional Instructions: Keep the pressure dressing in place until 10 PM on the evening of 12/29/2023. At that time you may may remove the pressure dressing but leave the Steri-Strips in place until they fall off on their own in approximately 7 days. Tomorrow evening after 10 PM you may rinse the area off with soapy water. Dry the site with a chairperson anesthesiology or blot dry. Cover the laceration repair site with nonstick gauze when wearing gloves to perform your work. Use Tylenol and ibuprofen for pain control if there are no contraindications to do so.
[2023-12-28 20:37] VITALS: RESP 18; TEMP 97.4
[2023-12-28 21:26] VITALS: BP 132/84; PULSE 79; O2SAT 100
== END 2023-12-28 21:29 | disposition home or self-care (01) ==
LOC: ED 19:28
DX: S61.211A Laceration without foreign body of left index finger without damage to nail, initial encounter (principal)
CPT/HCPCS: 99281